=== PATIENT | male | born 1935 | race African-American/Black ===

== ENCOUNTER 2016-11-17 07:34 | Inpatient (IN) ==
[2016-11-17] MEDS ORDERED: SODIUM CHLORIDE 0.9% 500 ML IV STA (08:19)
[2016-11-17] MEDS ORDERED: PANTOPRAZOLE 40 MG VIAL IV STA (08:19)
--- NOTE | 2016-11-17 08:21 | Emergency Department Note ---
Veronica Calvert Brittany, am scribing for, and in the presence of, Rk Rivera MD 08:17. Nicole Calvert Phillip K, MD, personally performed the services described in this documentation, ascribed by Irene Martin in my presence, and it is both accurate and complete 820 . Arrival - Arrival Chief Complaint: GI Bleed/Rectal Stated Complaint: BLACK BOWEL (LIQUID) HICCUP CHEST PAIN ED Nursing Triage Note: C/o vomiting and diarrhea-onset 3 days ago. Reports black, tarry stool and coffee ground emesis. Denies abd pain. Mode of Arrival: Ambulatory Source: Patient, Family Time Seen by Provider: 11/17/16 07:57 - History of Present Illness HPI Narrative: This is an 81 y/o black male, who presents to the ED with c/o rectal bleeding which started 3 days ago. He reports he started to feel nauseated and vomiting for the past 3 days as well. He reports the diarrhea is black and tarry. He states the emsis is more like coffee grounds He denies any abd pain. His family denies any Hx of bleeding ulcers. His family states he does not take anti -inflammatory meds. Pt has no other complaints/pain in the ED at this time. Pt has a PMHx of HTN, dyslipidemia, and glaucoma. Pt denies a surgical Hx. Pt denies a family medical Hx. Pt denies a social Hx. Onset (ago): day(s) (Started 3 days) Consistency: constant Severity: moderate Allergies/Adverse Reactions: Allergies Allergy/AdvReac Type Severity Reaction Status Date / Time No Known Allergies Allergy Verified 11/17/16 07:48 Home Medications: Home Medications Medication Instructions Recorded Confirmed Type Atorvastatin [Lipitor] 20 mg PO DAILY 11/17/16 11/17/16 History Metoprolol Succinate Xl [Toprol Xl] 25 mg PO DAILY 11/17/16 11/17/16 History Timolol 0.5% Oph Soln [Timoptic 1 drop BOTH EYES DAILY 11/17/16 11/17/16 History 0.5%] amLODIPine [Norvasc] 5 mg PO DAILY 11/17/16 11/17/16 History Review of System - Review of System 12 point system: reviewed and no additional remarkable complaints except as stated - Review of System Constitutional: Absent: fever Gastrointestinal: Present: nausea, vomiting (Coffee ground emesis), diarrhea. Absent: abdominal pain Medical,Surgical,& Family Hx - Medical History Cardio: History of: Hypertension HEENT: History of: Glaucoma Endocrine: History of: Dyslipidemia - Social History Smoking Status: Never smoker Frequency of Alcohol Use: None Type of Drug Use: None Exam Vital Signs: Vital Signs Temperature 98.3 F 11/17/16 07:40 Pulse Rate 74 11/17/16 07:59 Respiratory Rate 16 11/17/16 07:59 Blood Pressure 130/76 11/17/16 07:59 O2 Sat by Pulse Oximetry 100 11/17/16 07:59 - General General appearance: alert, in no apparent distress - Head Head exam: Present: atraumatic, normocephalic, normal inspection - Eye Eye exam: Present: normal appearance, PERRL, EOMI - ENT ENT exam: Present: normal exam, normal oropharynx, mucous membranes moist - Neck Neck exam: Present: normal inspection, full ROM. Absent: tenderness - Chest Chest inspection: Present: normal inspection. Absent: tenderness, rash, abscess - Respiratory Respiratory exam: Present: normal lung sounds bilaterally. Absent: rales, respiratory distress, rhonchi, stridor, wheezes - Cardiovascular Cardiovascular exam: Present: regular rate, normal rhythm, normal heart sounds. Absent: murmur, rubs, gallop - Abdominal Exam Abdominal exam: Present: soft, normal bowel sounds. Absent: distention, tenderness, guarding, rebound, rigidity - Rectal Exam Rectal exam: Present: deferred, heme (+) stool - Extremities Exam Extremities exam: Present: normal inspection, full ROM. Absent: tenderness, joint swelling, calf tenderness - Back Exam Back exam: Present: normal inspection, full ROM. Absent: tenderness, muscle spasm, rashes - Neurological Exam Neurological exam: Present: alert, oriented X3, CN II-XII intact - Psychiatric Psychiatric exam: Present: normal affect, normal mood. Absent: agitated, anxious - Skin Skin exam: Present: warm, intact, normal color. Absent: diaphoresis Results - Labs CBC & BMP: 11/17/16 09:04 Lab Results: I have reviewed the patients labs - EKG EKG results: interpreted by EVERETTE, sinus rhythm (LVH) - Diagnostic Findings Procedure: Abdominal x-ray: report reviewed by me (air-fluid levels without evidence of obstruction), Chest x-ray: report reviewed by me (Minimal bibasilar opacities are present. This likely repersents atelectasis, but superimposed pneumonia is not excluded. ) Disposition Clinical Impression: Melena, Upper gastrointestinal hemorrhage Case discussed with: patient Disposition: Still a Patient Condition: Guarded Additional Instructions: Admitted to the hospitalist.
--- NOTE | 2016-11-17 08:50 | XRay Report ---
Referring Physician: Rk Rivera Exam: XR abdomen complete with decubitus view Date: November 17, 2016 at 8:29 AM Reason: Generalized abdominal pain Comparison: None Findings: There is scattered air within the colon with air-fluid levels present. This could represent mild ileus or a diarrheal illness. No definite renal calculi are identified, but the renal shadows are partially obscured. There is degenerative change at the lower lumbar spine and pelvis, and the patient is status post left total hip replacement. No acute osseous process is seen. Impression: There is scattered air within the colon with air-fluid levels present. This could represent mild ileus or a diarrheal illness. PROCEDURE INTERPRETED AT [facility] DEPARTMENT OF RADIOLOGY Final Report Signed by: Dr. Hannah Martinez
--- NOTE | 2016-11-17 08:52 | XRay Report ---
Referring Physician: Rk Rivera Exam: XR chest 1V Date: November 17, 2016 at 8:29 AM Reason: Shortness of breath Comparison: Chest x-ray portable November 30, 2009 Findings: The cardiac silhouette is upper normal in size, and there is scattered calcified plaque at the thoracic aorta. There may also be calcified hilar lymph nodes. There are minimal opacities at both lung bases. This likely represents atelectasis, but superimposed pneumonia is not excluded. No pneumothorax or definite pleural fluid is identified. No acute osseous process is seen. Impression: Minimal bibasilar opacities are present. This likely represent atelectasis, but superimposed pneumonia is not excluded. PROCEDURE INTERPRETED AT [facility] [place] DEPARTMENT OF RADIOLOGY Final Report Signed by: Dr. Hannah Martinez
[2016-11-17] MEDS ORDERED: PANTOPRAZOLE 40 MG VIAL IV ONE (09:12)
[2016-11-17 09:16] LABS: Basophils % 0.2 % (0.0-0.8); Eosinophils # 0.1 10*3/uL (0.0-0.87); Eosinophils % 0.8 % (0.00-10.9); Hematocrit 35.6 VOL% (42.0-52.0); Hemoglobin 12.1 GM/DL (14.0-18.0); Immature Granulocytes % 0.3 %; Immature Granulocytes Absolute 0.02 #; Lymphocytes # 1.3 10*3/uL (1.4-4.0); Lymphocytes % 20.5 % (21.2-54.2); Mean Corpuscular Hemoglobin 26 PG (27-34); Mean Corpuscular Volume 77.7 FL (87-102); Mean Platelet Volume 11.4 FL (9.6-12.0); Monocytes # 0.7 10*3/uL (0.11-0.8); Monocytes % 10.8 % (1.7-12.7); Neutrophils # 4.2 10*3/uL (1.4-7.4); Neutrophils % 67.4 % (38.7-73.9); Platelet Count 185 10*3/uL (130-400); Red Blood Count 4.58 10*6/uL (3.8-5.5); Red Cell Distribution Width 14.7 % (9.3-17.3); White Blood Count 6.2 10*3/uL (4.5-13.71)
[2016-11-17 09:22] LABS: INR 1.1; PT Patient Result 11.3 SECS
[2016-11-17 09:41] LABS: Albumin 3.2 G/DL (3.4-5.0); Bilirubin,Total 0.8 MG/DL (0.2-1.0); Calcium 8.3 MG/DL (8.5-10.1); Osmolality,Calculated 296.4 MOS/KG (273-304); Potassium 3.6 MMOL/L (3.5-5.1); Total Protein 6.2 G/DL (6.4-8.3)
[2016-11-17] MEDS ORDERED: ONDANSETRON 4 MG/2 ML VIAL IV PRN (10:01)
[2016-11-17] MEDS ORDERED: MORPHINE 2 MG/1 ML SYRINGE IV PRN (10:01)
[2016-11-17] MEDS ORDERED: ACETAMINOPHEN 325 MG TABLET PO PRN (10:01)
--- NOTE | 2016-11-17 10:10 | Hospitalist History & Physical ---
<Yesi Castellano N - Last Filed: 11/17/16 10:05> Assessment and Plan - Time spent with patient Time spent with patient: Greater than 30 minutes (due to assessment, plan and documentation) (1) Dark stools Status: Acute Assessment and plan: Admit to Med/Surg Consult GI, Dr. Bailey IV Protonix recheck H/H in the AM routine labs in the AM clear liquid diet DVT prophylaxis with VTE only resume home meds further plan and addendum to follow per Dr Jose Current Visit: Yes (2) Vomiting Status: Acute Current Visit: Yes History of Present Illness Chief complaint: GI bleeding History of present illness: Mr. Alatorre is a 81 year old male who presents to the ER with dark black stools x3 days. Mr. Alatorre is very heard of hearing and has trouble conversing with me, his answers most of his questions for me. She states they noticed his stool being dark black and watery on Sunday, no bright red blood. He also had a few episodes of vomiting. This morning he began vomiting frequently and they came to the Er. She denies seeing any dark blood or bright red blood in his vomit. He denies abdominal pain. No tenderness on exam. They both state that he has never had any GI bleeding before. He has a PMH of hypertension and dyslipidemia. PSH of cardiac cath. He does not smoke or drink. He ambulates well on his own. His states he has no diagnosis of dementia but that he is so hard of hearing and he often seems confused. Mr. Alatorre is oriented x3 but does have difficulty answering questions. At present he denies chest pain, shortness of breath, headache, fever, abdominal pain, dysuria or edema. His H/H is stable today at 12/35. Vitals stable on bedside monitor. There are no old records to review. Home Medications Medication Instructions Recorded Confirmed Type Atorvastatin [Lipitor] 20 mg PO DAILY 11/17/16 11/17/16 History Metoprolol Succinate Xl [Toprol Xl] 25 mg PO DAILY 11/17/16 11/17/16 History Timolol 0.5% Oph Soln [Timoptic 1 drop BOTH EYES DAILY 11/17/16 11/17/16 History 0.5%] amLODIPine [Norvasc] 5 mg PO DAILY 11/17/16 11/17/16 History Allergies Allergy/AdvReac Type Severity Reaction Status Date / Time No Known Allergies Allergy Verified 11/17/16 07:48 Medical,Surgical,& Family Hx - Medical History Cardio: History of: Hypertension HEENT: History of: Glaucoma Endocrine: History of: Dyslipidemia - Surgical History Surgical History: noncontributory Cardiac Surgeries: Sugical HX of: Cardiac Catheterization - Family History Family History: noncontributory - Social History Smoking Status: Never smoker Frequency of Alcohol Use: None Type of Drug Use: None Marital Status: Lives With:: Spouse Functional capacity: independent ambulation 12 point system: reviewed and no additional remarkable complaints except as stated Exam - Constitutional Vitals: Period Temp Pulse Resp BP Sys/Haque Pulse Ox Last 24 Hr 98.3 F 74-76 16-18 115-130/72-76 96-100 General appearance: no acute distress - Head Head exam: Present: normal inspection, normocephalic - Eye Eye exam: Present: EOMI. Absent: scleral icterus Pupils: Present: AILYN, normal accommodation - ENT ENT exam: Present: normal exam, normal oropharynx - Neck Neck exam: Present: normal inspection. Absent: lymphadenopathy - Respiratory Respiratory exam: Present: clear to auscultation bilaterally. Absent: wheezes - Cardiovascular Cardiovascular exam: Present: regular rate and rhythm. Absent: tachycardia - GI/Abdominal GI/Abdominal exam: Present: normal bowel sounds, soft. Absent: tenderness - Extremities Exam Extremities exam: Present: normal inspection, full ROM. Absent: edema - Back Exam Back exam: Present: normal inspection. Absent: muscle spasm - Neurological Exam Neurological exam: Present: alert, oriented X3 - Psychiatric Psychiatric exam: Present: normal affect, normal mood - Skin Skin exam: Present: normal color, warm, dry Results - Labs CBC & BMP: 11/17/16 09:04 11/17/16 09:04 Lab Results: I have reviewed the past 24 hour labs Quality Measures - VTE Contraindication to Pharmacological VTE Prophylaxis: Active Bleeding <Rafaela Jose - Last Filed: 11/17/16 11:01> Assessment and Plan (1) Upper gastrointestinal hemorrhage Status: Acute Current Visit: Yes History of Present Illness History of present illness: Mr. Alatorre is a 81 year old male presents to the emergency department today with evidence of upper GI bleeding with dark tarry stools and coffee-ground emesis. The patient was seen and examined independently by me on the day of admission in the emergency department. The patient's is at the bedside and is helpful in answering most of his questions due to his hearing difficulties. The case was discussed with the nurse practitioner. Medications were reviewed and reconciled. The patient be admitted to my service with consultation for gastroenterology for possible endoscopy. Clear liquid diet was started. Patient is not on anticoagulation and his INR is normal. H&H is stable and repeat labs of been ordered for tomorrow. Exam - Constitutional Vitals: Period Temp Pulse Resp BP Sys/Haque Pulse Ox Last 24 Hr 70-71 16-17 148-148/88-88 100-100 Results - Labs CBC & BMP: 11/17/16 09:04 11/17/16 09:04
[2016-11-17] MEDS: SODIUM CHLORIDE 0.9% 1,000 ML IV SCH ×2 (11:50→23:48)
--- NOTE | 2016-11-17 12:34 | Gastrointestinal Consult Note ---
<Hannah Catalan - Last Filed: 11/17/16 12:29> Assessment and Plan (1) Melena Status: Acute Assessment and plan: 11/17-Sudden onset of dark coffee ground emesis two days ago with reported dark runny stools x 2 days. No abd pain. Hgb stable at 12. Reports endoscopy of some type in past year, possibly [facility]. Check stool for occult blood. Monitor serial HH. Plan and addendum to follow by Dr Bailey. Current Visit: Yes History of Present Illness Chief complaint: GI bleed History of present illness: Mr. Alatorre is a 81 year old male who presented to the ER with two day history of coffee ground emesis and melena. Pt is very hard of hearing. at bedside and provides history. Pt is reported to not feel very well on Sunday night and began having nausea with vomiting. He vomitted up what was reported to be dark liquid several times. He awoke on Sunday morning and vomitted dark liquid a couple of more times and at that time began having loose watery dark stools. Pt did not complain of abdominal pain but states he sat with his hands rubbing his abdomen off and on. He developed hiccups on Sunday as well and has had this continually since this time. He has no prior history of GI Bleed in the past. He denies any NSAID use. Denies any GERD symptoms, difficulty swallowing, weight loss, fever or chills. His states he has had some type of endoscopy, possibly at [facility], in the past year but cannot recall the details. No endoscopy history noted in our facility database. Hgb 12 at present with last dark stool reported this morning. Abd xray shows possible mild ileus or diarrheal illness with scattered air in colon and air-fluid levels present. Home Medications Medication Instructions Recorded Confirmed Type Atorvastatin [Lipitor] 20 mg PO DAILY 11/17/16 11/17/16 History Metoprolol Succinate Xl [Toprol Xl] 25 mg PO DAILY 11/17/16 11/17/16 History Timolol 0.5% Oph Soln [Timoptic 1 drop BOTH EYES DAILY 11/17/16 11/17/16 History 0.5%] amLODIPine [Norvasc] 5 mg PO DAILY 11/17/16 11/17/16 History Allergies Allergy/AdvReac Type Severity Reaction Status Date / Time No Known Allergies Allergy Verified 11/17/16 07:48 Medical,Surgical,& Family Hx - Medical History Cardio: History of: Hypertension Neurology: History of: Cerebral Hemorrhage HEENT: History of: Glaucoma Endocrine: History of: Dyslipidemia Genitourinary: History of: Prostate Problems - Surgical History Cardiac Surgeries: Sugical HX of: Cardiac Catheterization Neurologic Surgeries: Surgical HX of: Cerebral Hemorrhage Orthopedic Surgeries: Surgical HX of;: Orthopedic Surgery (right hip surgery in 2012) - Social History Smoking Status: Never smoker Frequency of Alcohol Use: None Type of Drug Use: None ROS unobtainable: other (hard of hearing) Exam - Constitutional Vitals: Period Temp Pulse Resp BP Sys/Haque Pulse Ox Last 24 Hr 98.2 F 70-75 16-18 145-148/70-88 95-100 General appearance: normal weight, no acute distress - Head Head exam: Present: normal inspection, normocephalic - Eye Eye exam: Present: other (lids and conjunctiva unremarkable). Absent: scleral icterus - ENT ENT exam: Present: normal exam, normal oropharynx - Neck Neck exam: Present: normal inspection - Respiratory Respiratory exam: Present: clear to auscultation bilaterally. Absent: rales, rhonchi, wheezes - Cardiovascular Cardiovascular exam: Present: regular rate and rhythm. Absent: diastolic murmur , JVD, systolic murmur - GI/Abdominal GI/Abdominal exam: Present: normal bowel sounds, soft. Absent: ascites, distended, mass, organomegaly, tenderness - Extremities Exam Extremities exam: Present: normal inspection, full ROM - Back Exam Back exam: Present: normal inspection - Neurological Exam Neurological exam: Present: alert, oriented X3 - Psychiatric Psychiatric exam: Present: normal affect, normal mood - Skin Skin exam: Present: normal color, warm, dry Results - Labs CBC & BMP: 11/17/16 09:04 11/17/16 09:04 Lab Results: I have reviewed the past 24 hour labs Quality Measures - VTE Contraindication to Pharmacological VTE Prophylaxis: Active Bleeding Specialty Discharge - Follow Up or Referrals - Discharge Medications No Action Timolol 0.5% Oph Soln [Timoptic 0.5%] 1 drop BOTH EYES DAILY amLODIPine [Norvasc] 5 mg PO DAILY Metoprolol Succinate Xl [Toprol Xl] 25 mg PO DAILY Atorvastatin [Lipitor] 20 mg PO DAILY <Tiburcio Bailey - Last Filed: 11/17/16 15:10> History of Present Illness History of present illness: Mr. Alatorre is a 81 year old male Exam - Constitutional Vitals: Period Temp Pulse Resp BP Sys/Haque Pulse Ox Last 24 Hr 98.2 F 70-75 16-18 145-148/70-88 95-100 Results - Labs CBC & BMP: 11/17/16 09:04 11/17/16 09:04
[2016-11-17] MEDS: PANTOPRAZOLE 40 MG VIAL IV SCH (20:18)
[2016-11-18] MEDS: SODIUM CHLORIDE 0.9% 1,000 ML IV SCH ×2 (01:41→15:00)
[2016-11-18 07:15] LABS: Basophils % 0.2 % (0.0-0.8); Eosinophils # 0.2 10*3/uL (0.0-0.87); Eosinophils % 3.5 % (0.00-10.9); Hematocrit 35.8 VOL% (42.0-52.0); Hemoglobin 11.9 GM/DL (14.0-18.0); Immature Granulocytes % 0.3 %; Immature Granulocytes Absolute 0.02 #; Lymphocytes # 1.7 10*3/uL (1.4-4.0); Lymphocytes % 28.8 % (21.2-54.2); Mean Corpuscular HGB Conc 33.2 GM/DL (32-36); Mean Corpuscular Hemoglobin 26 PG (27-34); Mean Platelet Volume 11.5 FL (9.6-12.0); Monocytes # 0.7 10*3/uL (0.11-0.8); Monocytes % 11.9 % (1.7-12.7); Neutrophils # 3.2 10*3/uL (1.4-7.4); Neutrophils % 55.3 % (38.7-73.9); Platelet Count 135 10*3/uL (130-400); Red Blood Count 4.59 10*6/uL (3.8-5.5); Red Cell Distribution Width 14.8 % (9.3-17.3); White Blood Count 5.7 10*3/uL (4.5-13.71)
[2016-11-18 07:48] LABS: Bilirubin,Total 0.9 MG/DL (0.2-1.0); Calcium 8.4 MG/DL (8.5-10.1); Osmolality,Calculated 295.1 MOS/KG (273-304); Potassium 3.9 MMOL/L (3.5-5.1); Total Protein 5.9 G/DL (6.4-8.3)
--- NOTE | 2016-11-18 08:25 | EKG Report ---
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
--- NOTE | 2016-11-18 08:29 | Hospitalist Progress Note ---
Assessment and Plan (1) Upper gastrointestinal hemorrhage Status: Acute Assessment and plan: monitor H/H. EGD on sunday. GI consult noted Current Visit: Yes Hospitalist: Subjective Interval history: Patient seen and examined with his at the bedside. He is still having some loose BM's. The color is not black/ tarry anymore. He reports his stomach is " no settled". Exam - Constitutional Vitals: Period Temp Pulse Resp BP Sys/Haque Pulse Ox Last 24 Hr 97.7 F-99 F 55-75 16-18 124-148/66-88 95-100 General appearance: no acute distress - Head Head exam: Present: normal inspection, normocephalic - Eye Eye exam: Present: EOMI Pupils: Present: AILYN - ENT ENT exam: Present: other (very hard of hearing) - Respiratory Respiratory exam: Present: clear to auscultation bilaterally - Cardiovascular Cardiovascular exam: Present: regular rate and rhythm - GI/Abdominal GI/Abdominal exam: Present: normal bowel sounds, soft - Extremities Exam Extremities exam: Absent: edema - Neurological Exam Neurological exam: Present: alert, oriented X3 - Psychiatric Psychiatric exam: Present: normal affect, normal mood - Skin Skin exam: Present: normal color, warm, dry Results - Labs CBC & BMP: 11/18/16 07:01 11/18/16 07:01 Lab Results: I have reviewed the past 24 hour labs Quality Measures - VTE Contraindication to Pharmacological VTE Prophylaxis: Active Bleeding Specialty Discharge - Follow Up or Referrals - Discharge Medications No Action Timolol 0.5% Oph Soln [Timoptic 0.5%] 1 drop BOTH EYES DAILY amLODIPine [Norvasc] 5 mg PO DAILY Metoprolol Succinate Xl [Toprol Xl] 25 mg PO DAILY Atorvastatin [Lipitor] 20 mg PO DAILY
[2016-11-18] MEDS: amLODIPine 5 MG TABLET PO SCH (09:16)
[2016-11-18] MEDS: ATORVASTATIN 20 MG TABLET PO SCH (09:16)
[2016-11-18] MEDS: METOPROLOL SUCCINATE XL 25 MG TABLET PO SCH (09:16)
[2016-11-18] MEDS: PANTOPRAZOLE 40 MG VIAL IV SCH ×2 (09:16→20:28)
--- NOTE | 2016-11-18 15:41 | Gastrointestinal Progress Note ---
Assessment and Plan - Time spent with patient Time spent with patient: Greater than 30 minutes (1) Upper gastrointestinal hemorrhage Status: Acute Current Visit: Yes (2) Other specified counseling Status: Acute Current Visit: Yes Exam (Progress Note) - Constitutional Vitals: Period Temp Pulse Resp BP Sys/Haque Pulse Ox Last 24 Hr 97.7 F-99 F 55-81 16-20 124-146/66-83 95-98 Results - Labs CBC & BMP: 11/18/16 07:01 11/18/16 07:01 Specialty Discharge - Follow Up or Referrals - Discharge Medications No Action Timolol 0.5% Oph Soln [Timoptic 0.5%] 1 drop BOTH EYES DAILY amLODIPine [Norvasc] 5 mg PO DAILY Metoprolol Succinate Xl [Toprol Xl] 25 mg PO DAILY Atorvastatin [Lipitor] 20 mg PO DAILY Note Addendum: PLEASE NOTE -- automatic citation of patient information is unavoidable in this electronic note. I have made a reasonable effort to review the information cited , but it is not a part of my evaluation, impression, or recommendation unless specifically discussed in the dictated text that follows.~ As well, voice recognition software was used in the creation of this clinical note. Reasonable effort was made to identify and correct gross errors. Despite proofreading, errors in bread wrapper operator may be present, including nonsense verbiage at times. If you encounter such an error, please contact me at for discussion and correction. -- Cathy Chief complaint: hematemesis Subjective: the patient is an 81-year-old male seen for follow-up of hematemesis with anemia. The patient was admitted yesterday with complaint of same. Evaluation at that time did not reveal overt active bleeding. No emesis has been documented overnight. One bowel movement has been documented today. The patient is somewhat confused but he is alert and oriented to person and place. He is a little bit frustrated, it would appear. He is attended by his unmyqtm-tr-ien who is helpful in our conversation. He is without pain or discomfort at present. Medications: Tylenol, [place], Norvasc, Lipitor, Toprol, morphine sulfate, Zofran , Protonix, normal saline infusion Review of Symptoms: 12 point review of symptoms was negative except as noted above Physical examination: Vital Signs:~ Current vital signs reviewed. General Appearance: lying in bed. Comfortable. No apparent distress. Head:~ Normocephalic. Eyes: no scleral icterus. No scleral injection. No conjunctival pallor. Oral Cavity:~ Odor of breath was normal.~ No drooling was observed.~ Lips showed no abnormalities. ~ Lungs:~ Respiration rhythm and depth was normal. ~ Cardiovascular:~ Heart rate and rhythm were normal. ~ Abdomen: abdomen was not distended. Abdominal auscultation revealed no abnormalities. Ascites was not discovered. Abdominal palpation revealed no tenderness and no hepatosplenomegaly. Musculoskeletal System: musculoskeletal system was grossly normal. Neurological: level of consciousness was normal. Speech was normal. The patient was alert and oriented to person and place but may have been confabulating a bit. Skin: Gen. appearance was normal. Color and pigmentation were normal. No skin lesions were appreciated. Laboratory: white blood count 5.7, hemoglobin 11.9, hematocrit 35.8, platelets 135, INR 1.1, PT 11.3 Radiology: reviewed with no pertinent changes noted. Impressions: 1. Hematemesis -- blood counts have remained stable and there has been no overt bleeding. I recommend continued monitoring with aggressive volume support and transfusion as indicated. I recommend continued proton pump inhibitor. We will plan upper endoscopy with timing based on clinical progress, likely Sunday. 2. Patient Counseling:~ Medical Management: Patient seen for greater than 30 minutes. Greater than 50% of this time was spent counseling regarding differential diagnosis, likely diagnosis,, diagnostic and therapeutic options, risks, benefits, and alternatives to procedures and medications, informed consent, and plan of care generally.~ Patient has expressed understanding and wishes to proceed. Recommendations: -- continue aggressive volume management -- continue proton pump inhibitor -- monitor blood counts with transfusion as indicated -- upper endoscopy with timing based on clinical progress, likely Sunday -- we will continue to follow with you
[2016-11-19] MEDS: SODIUM CHLORIDE 0.9% 1,000 ML IV SCH (03:30)
--- NOTE | 2016-11-19 09:11 | Gastrointestinal Progress Note ---
Assessment and Plan - Time spent with patient Time spent with patient: Less than 30 minutes (1) Upper gastrointestinal hemorrhage Status: Acute Current Visit: Yes (2) Other specified counseling Status: Acute Current Visit: Yes Exam (Progress Note) - Constitutional Vitals: Period Temp Pulse Resp BP Sys/Haque Pulse Ox Last 24 Hr 97.8 F-98.7 F 66-86 16-20 125-155/67-87 95-99 Results - Labs CBC & BMP: 11/18/16 07:01 11/18/16 07:01 Specialty Discharge - Follow Up or Referrals - Discharge Medications No Action Timolol 0.5% Oph Soln [Timoptic 0.5%] 1 drop BOTH EYES DAILY amLODIPine [Norvasc] 5 mg PO DAILY Metoprolol Succinate Xl [Toprol Xl] 25 mg PO DAILY Atorvastatin [Lipitor] 20 mg PO DAILY Note Addendum: PLEASE NOTE -- automatic citation of patient information is unavoidable in this electronic note. I have made a reasonable effort to review the information cited , but it is not a part of my evaluation, impression, or recommendation unless specifically discussed in the dictated text that follows. As well, voice recognition software was used in the creation of this clinical note. Reasonable effort was made to identify and correct gross errors. Despite proofreading, errors in waterproof coating machine tender may be present, including nonsense verbiage at times. If you encounter such an error, please contact me at for discussion and correction. -- Cathy Chief complaint: hematemesis Subjective: the patient is an 81-year-old male seen for follow-up of hematemesis with anemia. The patient was admitted yesterday with complaint of same. Evaluation at that time did not reveal overt active bleeding. No emesis has been documented overnight. One bowel movement has been documented today. The patient is somewhat confused but he is alert and oriented to person and place. He is a little bit frustrated, it would appear. He is attended by his [id number] who is helpful in our conversation. He is without pain or discomfort at present. Medications: Tylenol, [place], Norvasc, Lipitor, Toprol, morphine sulfate, Zofran , Protonix, normal saline infusion Review of Symptoms: 12 point review of symptoms was negative except as noted above Physical examination: Vital Signs: Current vital signs reviewed. General Appearance: lying in bed. Comfortable. No apparent distress. Head: Normocephalic. Eyes: no scleral icterus. No scleral injection. No conjunctival pallor. Oral Cavity: Odor of breath was normal. No drooling was observed. Lips showed no abnormalities. Lungs: Respiration rhythm and depth was normal. Cardiovascular: Heart rate and rhythm were normal. Abdomen: abdomen was not distended. Abdominal auscultation revealed no abnormalities. Ascites was not discovered. Abdominal palpation revealed no tenderness and no hepatosplenomegaly. Musculoskeletal System: musculoskeletal system was grossly normal. Neurological: level of consciousness was normal. Speech was normal. The patient was alert and oriented to person and place but may have been confabulating a bit. Skin: Gen. appearance was normal. Color and pigmentation were normal. No skin lesions were appreciated. Laboratory: no new laboratories today Radiology: reviewed with no pertinent changes noted. Impressions: 1. Hematemesis -- blood counts have remained stable and there has been no overt bleeding. I recommend continued monitoring with aggressive volume support and transfusion as indicated. I recommend continued proton pump inhibitor. We will plan upper endoscopy with timing based on clinical progress, likely Sunday. 2. Patient Counseling: Medical Management: Patient seen for greater than 30 minutes. Greater than 50% of this time was spent counseling regarding differential diagnosis, likely diagnosis,, diagnostic and therapeutic options, risks, benefits, and alternatives to procedures and medications, informed consent, and plan of care generally. Patient has expressed understanding and wishes to proceed. Recommendations: -- continue aggressive volume management -- continue proton pump inhibitor -- monitor blood counts with transfusion as indicated -- upper endoscopy with timing based on clinical progress, likely Sunday -- we will continue to follow with you
[2016-11-19] MEDS: METOPROLOL SUCCINATE XL 25 MG TABLET PO SCH (09:24)
[2016-11-19] MEDS: PANTOPRAZOLE 40 MG VIAL IV SCH ×2 (09:24→20:11)
[2016-11-19] MEDS: amLODIPine 5 MG TABLET PO SCH (09:24)
[2016-11-19] MEDS: ATORVASTATIN 20 MG TABLET PO SCH (09:24)
--- NOTE | 2016-11-19 11:58 | Hospitalist Progress Note ---
Assessment and Plan (1) Upper gastrointestinal hemorrhage Status: Acute Assessment and plan: monitor H/H. EGD on sunday. GI consult noted Current Visit: Yes Hospitalist: Subjective Interval history: Patient seen and examined. No acute events overnight. at the bedside. No blood in stool. Scope plan for tomorrow. Exam - Constitutional Vitals: Period Temp Pulse Resp BP Sys/Haque Pulse Ox Last 24 Hr 97.8 F-98.7 F 66-86 16-20 125-155/67-87 95-99 General appearance: no acute distress - Head Head exam: Present: normal inspection, normocephalic - Respiratory Respiratory exam: Present: clear to auscultation bilaterally - Cardiovascular Cardiovascular exam: Present: regular rate and rhythm - GI/Abdominal GI/Abdominal exam: Present: normal bowel sounds, soft. Absent: tenderness, rebound - Extremities Exam Extremities exam: Absent: edema - Neurological Exam Neurological exam: Present: alert - Psychiatric Psychiatric exam: Present: normal affect, normal mood - Skin Skin exam: Present: normal color, warm, dry Results - Labs CBC & BMP: 11/18/16 07:01 11/18/16 07:01 Lab Results: I have reviewed the past 24 hour labs Quality Measures - VTE Contraindication to Pharmacological VTE Prophylaxis: Active Bleeding Specialty Discharge - Follow Up or Referrals - Discharge Medications No Action Timolol 0.5% Oph Soln [Timoptic 0.5%] 1 drop BOTH EYES DAILY amLODIPine [Norvasc] 5 mg PO DAILY Metoprolol Succinate Xl [Toprol Xl] 25 mg PO DAILY Atorvastatin [Lipitor] 20 mg PO DAILY
[2016-11-20 06:29] LABS: Basophils % 0.2 % (0.0-0.8); Eosinophils # 0.2 10*3/uL (0.0-0.87); Eosinophils % 2.4 % (0.00-10.9); Hematocrit 36.3 VOL% (42.0-52.0); Hemoglobin 12.4 GM/DL (14.0-18.0); Immature Granulocytes % 0.5 %; Immature Granulocytes Absolute 0.03 #; Lymphocytes # 2.1 10*3/uL (1.4-4.0); Lymphocytes % 32.3 % (21.2-54.2); Mean Corpuscular HGB Conc 34.2 GM/DL (32-36); Mean Corpuscular Hemoglobin 26 PG (27-34); Mean Corpuscular Volume 77.2 FL (87-102); Mean Platelet Volume 10.9 FL (9.6-12.0); Monocytes # 0.6 10*3/uL (0.11-0.8); Neutrophils # 3.5 10*3/uL (1.4-7.4); Neutrophils % 54.6 % (38.7-73.9); Platelet Count 191 10*3/uL (130-400); Red Cell Distribution Width 14.2 % (9.3-17.3); White Blood Count 6.4 10*3/uL (4.5-13.71)
[2016-11-20 06:44] LABS: Calcium 8.9 MG/DL (8.5-10.1); Osmolality,Calculated 289.4 MOS/KG (273-304); Potassium 3.4 MMOL/L (3.5-5.1)
[2016-11-20 07:12] LABS: Hypochromasia Slight; Microcytosis Slight
[2016-11-20] MEDS ORDERED: POTASSIUM CHLORIDE 20 MEQ TABLET PO ONE ×2 (07:18→14:00)
--- NOTE | 2016-11-20 09:45 | Hospitalist Progress Note ---
<Jordyn Sandoval - Last Filed: 11/20/16 09:43> Assessment and Plan - Time spent with patient Time spent with patient: Less than 30 minutes (due to assessment, plan and documentation) (1) Upper gastrointestinal hemorrhage Status: Acute Assessment and plan: for EGD today, h/h stable cbc in am Current Visit: Yes (2) Dark stools Status: Acute Current Visit: Yes (3) Vomiting Status: Acute Current Visit: Yes Hospitalist: Subjective Interval history: Mr. Alatorre was seen on rounds sitting in chair. He was admitted with an UGIB and is for an EGD today. His H/H is stable at 12/36. Stools returned 4+ positive. He has not required a transfusion. Vitals are stable as are his labs. He has been on protonix 40 mg IV. He states that he is hungry and cold, but otherwise doing well. is at bedside. We will continue to follow along with GI. Labs in AM. Exam - Constitutional Vitals: Period Temp Pulse Resp BP Sys/Haque Pulse Ox Last 24 Hr 97.6 F-98.8 F 58-72 16-18 124-142/57-77 93-99 General appearance: normal weight, no acute distress - Head Head exam: Present: normal inspection, normocephalic - Eye Eye exam: Present: EOMI. Absent: scleral icterus Pupils: Present: AILYN, normal accommodation - ENT ENT exam: Present: normal exam, normal oropharynx - Neck Neck exam: Present: normal inspection. Absent: lymphadenopathy - Respiratory Respiratory exam: Present: clear to auscultation bilaterally. Absent: accessory muscle use - Cardiovascular Cardiovascular exam: Present: regular rate and rhythm. Absent: carotid bruit - GI/Abdominal GI/Abdominal exam: Present: normal bowel sounds. Absent: tenderness - Extremities Exam Extremities exam: Present: normal inspection. Absent: edema - Back Exam Back exam: Present: normal inspection. Absent: muscle spasm - Neurological Exam Neurological exam: Present: alert, oriented X3 - Psychiatric Psychiatric exam: Present: normal affect, normal mood - Skin Skin exam: Present: normal color, warm, dry, intact Results - Labs CBC & BMP: 11/20/16 05:44 11/20/16 05:44 Lab Results: I have reviewed the past 24 hour labs Quality Measures - VTE Contraindication to Pharmacological VTE Prophylaxis: Active Bleeding Specialty Discharge - Follow Up or Referrals - Discharge Medications No Action Timolol 0.5% Oph Soln [Timoptic 0.5%] 1 drop BOTH EYES DAILY amLODIPine [Norvasc] 5 mg PO DAILY Metoprolol Succinate Xl [Toprol Xl] 25 mg PO DAILY Atorvastatin [Lipitor] 20 mg PO DAILY <Rafaela Jose - Last Filed: 11/20/16 11:11> Assessment and Plan (1) Upper gastrointestinal hemorrhage Status: Acute Current Visit: Yes Hospitalist: Subjective Interval history: Patient seen and examined. Labs reviewed. Case discussed with nurse practitioner and patient's . Patient scheduled for endoscopy today. Further plan depending on results and findings. H&H is stable. I reviewed with the above assessment and physical exam and plan and I agree.. Exam - Constitutional Vitals: Period Temp Pulse Resp BP Sys/Haque Pulse Ox Last 24 Hr 97.6 F-98.8 F 58-72 15-18 124-142/57-77 93-100 Results - Labs CBC & BMP: 11/20/16 05:44 11/20/16 05:44
[2016-11-20] MEDS ORDERED: LIDOCAINE 2% 5 ML VIAL ONE (11:50)
[2016-11-20] MEDS ORDERED: PROPOFOL 200 MG/20 ML VIAL IV ONE (11:50)
[2016-11-20] MEDS ORDERED: BISACODYL 5 MG TABLET PO ONE (12:00)
--- NOTE | 2016-11-20 12:04 | History and Physical Update ---
History and Physical Update - Physical Exam Mental Status: alert and oriented Heart: regular rate and rhythm Lung: clear to auscultation Abdomen: within normal limits Vitals: within normal limits
--- NOTE | 2016-11-20 12:04 | Anesthesia ---
Anesthesia Post OP - Post Ansesthetic Evaluation Patient seen in post op: Yes Resp: within normal limits CV: within normal limits Mental: within normal limits Temp: within normal limits [id number]: within normal limits Nausea and Vomiting: within normal limits Pain: within normal limits
--- NOTE | 2016-11-20 12:06 | Operative Note ---
Date of procedure: 11/20/16 Pre-op diagnosis: melena with reported hematemesis Procedure: EGD 81-year-old gentleman with melena and hematemesis now for upper endoscopy. Informed consent was obtained the patient He was sedated with Mac anesthesia per anesthesia protocol. Patient was placed in left lateral decubitus position the Olympus flexible video upper endoscope was inserted into the oral cavity under direct vision the esophagus was intubated. Findings: Esophagus-normal proximal mid esophageal mucosa distal esophagus with small to moderate hiatal hernia no varices no esophagitis no Putnam's was identified. Stomach-poor insufflation but no significant mucosal abnormalities were noted of the body fundus cardia or antrum of the stomach. No clear source for coffee ground emesis or melena identified. Pylorus-normal Duodenum-normal from above the duodenum third portion duodenum no AVMs no ulcers seen. The procedure terminated patient our procedure well his discharge recovery in good condition. Postop diagnosis: #1 occult positive stools with questionable melena and no clear source on upper endoscopy we will proceed with colonoscopy in a.m. #2 poor gastric insufflation. Proceed with CT scan abdomen pelvis following colonoscopy for concern over infiltrative process such as lienitis plastica. Anesthesia: [facility] [place] Surgeon / Physician: Tiburcio Bailey Specimens: none sent Condition: stable Disposition: post procedure unit Results - Labs CBC & BMP: 11/20/16 05:44 11/20/16 05:44 Discharge Plan - Discharge Medications No Action Timolol 0.5% Oph Soln [Timoptic 0.5%] 1 drop BOTH EYES DAILY amLODIPine [Norvasc] 5 mg PO DAILY Metoprolol Succinate Xl [Toprol Xl] 25 mg PO DAILY Atorvastatin [Lipitor] 20 mg PO DAILY - Follow Up or Referral - Forms/Instructions
[2016-11-20] MEDS: PANTOPRAZOLE 40 MG VIAL IV SCH ×2 (13:37→20:27)
[2016-11-20] MEDS: METOPROLOL SUCCINATE XL 25 MG TABLET PO SCH (13:37)
[2016-11-20] MEDS: amLODIPine 5 MG TABLET PO SCH (13:37)
[2016-11-20] MEDS: ATORVASTATIN 20 MG TABLET PO SCH (13:37)
[2016-11-20] MEDS ORDERED: POLYETHYLENE GLYCOL POWDER 255 GM BOTTLE PO ONE (18:00)
--- NOTE | 2016-11-21 07:58 | Hospitalist Progress Note ---
<Jordyn Sandoval - Last Filed: 11/21/16 07:55> Assessment and Plan - Time spent with patient Time spent with patient: Less than 30 minutes (due to assessment, plan and documentation) (1) Upper gastrointestinal hemorrhage Status: Acute Assessment and plan: s/p EGD yesterday- no cause found for C scope today difficult night due to prep CBC in Am Current Visit: Yes (2) Dark stools Status: Acute Current Visit: Yes (3) Vomiting Status: Resolved Current Visit: Yes Hospitalist: Subjective Interval history: Mr. Alatorre is asleep on rounds this morning. He is breathing easily, but difficult to awaken. His is at bedside and said that he had a "rough night " due to urinating and having BM's from his bowel prep for C scope today. He is s/p EGD yesterday and no cause was found for his coffee ground emesis, therefore he will have C scope today. Labs are stable as are his vital signs. Lungs are clear, abdomen soft and nondistended. Will follow up after results of C scope today. We will continue to follow along with GI. Exam - Constitutional Vitals: Period Temp Pulse Resp BP Sys/Haque Pulse Ox Last 24 Hr 98.3 F-98.8 F 63-74 18-18 128-135/70-80 96-96 General appearance: normal weight, no acute distress - Head Head exam: Present: normal inspection, normocephalic - Eye Eye exam: Present: EOMI. Absent: scleral icterus Pupils: Present: AILYN, normal accommodation - ENT ENT exam: Present: normal exam, normal oropharynx - Neck Neck exam: Present: normal inspection. Absent: lymphadenopathy - Respiratory Respiratory exam: Present: clear to auscultation bilaterally. Absent: accessory muscle use - Cardiovascular Cardiovascular exam: Present: regular rate and rhythm. Absent: carotid bruit - GI/Abdominal GI/Abdominal exam: Present: normal bowel sounds, soft. Absent: tenderness - Extremities Exam Extremities exam: Present: normal inspection. Absent: edema - Back Exam Back exam: Present: normal inspection. Absent: muscle spasm - Neurological Exam Neurological exam: Present: other (asleep- difficult to awaken. ) - Psychiatric Psychiatric exam: Present: other (asleep, difficult to awaken, breathing easily. ) - Skin Skin exam: Present: normal color, warm, dry, intact Results - Labs CBC & BMP: 11/20/16 05:44 11/20/16 05:44 Lab Results: I have reviewed the past 24 hour labs Quality Measures - VTE Contraindication to Pharmacological VTE Prophylaxis: Active Bleeding Specialty Discharge - Follow Up or Referrals - Discharge Medications No Action Timolol 0.5% Oph Soln [Timoptic 0.5%] 1 drop BOTH EYES DAILY amLODIPine [Norvasc] 5 mg PO DAILY Metoprolol Succinate Xl [Toprol Xl] 25 mg PO DAILY Atorvastatin [Lipitor] 20 mg PO DAILY <Rafaela Jose - Last Filed: 11/21/16 12:23> Assessment and Plan (1) Upper gastrointestinal hemorrhage Status: Acute Assessment and plan: Colonoscopy canceled for today due to lack of good prep. Follow-up CT scan abdomen and pelvis from today. Possible outpatient colonoscopy. Current Visit: Yes Hospitalist: Subjective Interval history: Patient seen and examined. Nurse practitioner documentation reviewed and discussed. I agree with the findings. The patient is unable to tolerate the prep for his colonoscopy today. It has been canceled. A CT of the abdomen and pelvis with oral contrast has been ordered and is currently pending. EGD report reviewed from yesterday. Exam - Constitutional Vitals: Period Temp Pulse Resp BP Sys/Haque Pulse Ox Last 24 Hr 98.3 F-98.8 F 63-74 18-18 128-135/70-80 96-96 - Respiratory Respiratory exam: Present: clear to auscultation bilaterally - GI/Abdominal GI/Abdominal exam: Present: soft. Absent: tenderness Results - Labs CBC & BMP: 11/20/16 05:44 11/20/16 05:44 Lab Results: I have reviewed the past 24 hour labs
--- NOTE | 2016-11-21 08:49 | Gastrointestinal Progress Note ---
<AlaynaHannah Bry - Last Filed: 11/21/16 08:44> Assessment and Plan (1) Melena Status: Acute Assessment and plan: 11/21-Post EGD with no findings for melena. Pt refused C-scope prep, procedure cancelled. Will proceed with CT of abdomen/pelvis today. Hgb stable at 12. Plan and addendum to follow by DR Bailey. 11/17-Sudden onset of dark coffee ground emesis two days ago with reported dark runny stools x 2 days. No abd pain. Hgb stable at 12. Reports endoscopy of some type in past year, possibly [facility]. Check stool for occult blood. Monitor serial HH. Plan and addendum to follow by Dr Bailey. Current Visit: Yes Gastroenterology - PN: Subj Interval history: CC: Melena, coffee ground emesis Pt is awake, alert with at side however not very conversant. Pt has refused to complete the prep overnight and stools are still not clear. He also refused the enemas. Pt states that he is normally very agreeable however he has been rather difficult the last couple of days. She states he doesnt have a history of dementia however has been a little confused/forgetful. Abdomen is soft, nontender. ROS: Denies sOB or chest pain Exam (Progress Note) - Constitutional Vitals: Period Temp Pulse Resp BP Sys/Haque Pulse Ox Last 24 Hr 98.3 F-98.8 F 63-74 18-18 128-135/70-80 96-96 General appearance: normal weight, no acute distress - Head Head exam: Present: normal inspection, normocephalic - Eye Eye exam: Present: other (lids and conjuncitva unremarakble). Absent: scleral icterus - ENT ENT exam: Present: normal exam, normal oropharynx - Neck Neck exam: Present: normal inspection - Respiratory Respiratory exam: Present: clear to auscultation bilaterally. Absent: rales, rhonchi, wheezes - Cardiovascular Cardiovascular exam: Present: regular rate and rhythm. Absent: diastolic murmur , JVD, systolic murmur - GI/Abdominal GI/Abdominal exam: Present: normal bowel sounds, soft. Absent: ascites, distended, mass, organomegaly, tenderness - Extremities Exam Extremities exam: Present: normal inspection, full ROM - Back Exam Back exam: Present: normal inspection - Neurological Exam Neurological exam: Present: alert, oriented X3 - Psychiatric Psychiatric exam: Present: normal affect, normal mood - Skin Skin exam: Present: normal color, warm, dry Results - Labs CBC & BMP: 11/20/16 05:44 11/20/16 05:44 Lab Results: I have reviewed the past 24 hour labs Specialty Discharge - Follow Up or Referrals - Discharge Medications No Action Timolol 0.5% Oph Soln [Timoptic 0.5%] 1 drop BOTH EYES DAILY amLODIPine [Norvasc] 5 mg PO DAILY Metoprolol Succinate Xl [Toprol Xl] 25 mg PO DAILY Atorvastatin [Lipitor] 20 mg PO DAILY <Tiburcio Bailey - Last Filed: 11/21/16 18:20> Exam (Progress Note) - Constitutional Vitals: Period Temp Pulse Resp BP Sys/Haque Pulse Ox Last 24 Hr 97.4 F-98.3 F 63-74 18-18 135-172/70-90 96 Results - Labs CBC & BMP: 11/20/16 05:44 11/20/16 05:44
[2016-11-21] MEDS: METOPROLOL SUCCINATE XL 25 MG TABLET PO SCH (09:08)
[2016-11-21] MEDS: amLODIPine 5 MG TABLET PO SCH (09:08)
[2016-11-21] MEDS: ATORVASTATIN 20 MG TABLET PO SCH (09:08)
[2016-11-21] MEDS: PANTOPRAZOLE 40 MG VIAL IV SCH ×2 (09:08→21:11)
--- NOTE | 2016-11-21 14:18 | CT Report ---
Exam: CT abdomen pelvis w con Date: 11/21/2016 8:50 AM Comparison: None Indication: Anemia, melena, coffee-ground emesis Technique: Sequential axial scans of the abdomen and pelvis were obtained following the ingestion of oral contrast and the injection of 100 cc Omnipaque 350. Coronal and sagittal 2-D reconstructions were obtained. Total DLP: 947.70 Findings: The heart is enlarged with arterial calcifications including coronary artery calcifications. Atelectasis/scarring at the visualized lung bases. Fatty infiltration of the liver which is normal in size with no masses, dilated ducts, or calcified gallstones. The spleen is normal in size with 6 mm hypodensity inferiorly. The pancreas, adrenal glands, and kidneys have an unremarkable appearance. No renal or ureteral calculi are identified. Calcification in the wall of the nondilated abdominal aorta with no adjacent adenopathy. 54 mm hiatal hernia with nonspecific thickening of the wall of the stomach at the GE junction and medial fundus location. No dilatation of the small bowel. Limited oral contrast in portions of bowel with no evidence of diverticulitis, appendicitis, free air, or free fluid. The prostate measures 69 mm in diameter and indents the base of the urinary bladder. Minimal urinary bladder wall thickening. 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 Degenerative changes are noted. Impression: Cardiomegaly with diffuse arterial calcifications including coronary artery calcifications. Fatty infiltration of the liver with indeterminate 6 mm hypodensity in the inferior spleen. 54 mm hiatal hernia with limited oral contrast in portions of the bowel. This includes the stomach/GE junction. Nonspecific thickening of the wall of the stomach in this location and endoscopy may be helpful for further evaluation. Nonspecific irregular enlargement of prostate which indents the base urinary bladder. Correlation with PSA recommended. 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 PROCEDURE INTERPRETED AT [facility] DEPARTMENT OF RADIOLOGY Final Report Signed by: Dr. Janeth Singh
[2016-11-21] MEDS ORDERED: BISACODYL 5 MG TABLET PO ONE (21:17)
[2016-11-22 07:15] LABS: Basophils % 0.2 % (0.0-0.8); Eosinophils # 0.2 10*3/uL (0.0-0.87); Eosinophils % 2.1 % (0.00-10.9); Hematocrit 38.7 VOL% (42.0-52.0); Hemoglobin 13.6 GM/DL (14.0-18.0); Immature Granulocytes % 0.4 %; Immature Granulocytes Absolute 0.03 #; Lymphocytes # 1.1 10*3/uL (1.4-4.0); Lymphocytes % 13.6 % (21.2-54.2); Mean Corpuscular HGB Conc 35.1 GM/DL (32-36); Mean Corpuscular Hemoglobin 27 PG (27-34); Mean Platelet Volume 10.4 FL (9.6-12.0); Monocytes # 0.4 10*3/uL (0.11-0.8); Neutrophils # 6.4 10*3/uL (1.4-7.4); Neutrophils % 78.7 % (38.7-73.9); Platelet Count 247 10*3/uL (130-400); Red Blood Count 5.09 10*6/uL (3.8-5.5); Red Cell Distribution Width 14.2 % (9.3-17.3); White Blood Count 8.2 10*3/uL (4.5-13.71)
[2016-11-22] MEDS: amLODIPine 5 MG TABLET PO SCH (08:39)
[2016-11-22] MEDS: METOPROLOL SUCCINATE XL 25 MG TABLET PO SCH (08:39)
[2016-11-22] MEDS: ATORVASTATIN 20 MG TABLET PO SCH (08:39)
[2016-11-22] MEDS: PANTOPRAZOLE 40 MG VIAL IV SCH (08:39)
--- NOTE | 2016-11-22 08:59 | Gastrointestinal Progress Note ---
<AlaynaHannah Bry - Last Filed: 11/22/16 08:54> Assessment and Plan (1) Melena Status: Acute Assessment and plan: 11/22-CT findings noted. Hgb 13. No overt bleeding. Plan for tentative outpatient c-scope upon discharge. Plan and addendum to follow by Dr Bailey. 11/21-Post EGD with no findings for melena. Pt refused C-scope prep, procedure cancelled. Will proceed with CT of abdomen/pelvis today. Hgb stable at 12. Plan and addendum to follow by DR Bailey. 11/17-Sudden onset of dark coffee ground emesis two days ago with reported dark runny stools x 2 days. No abd pain. Hgb stable at 12. Reports endoscopy of some type in past year, possibly [facility]. Check stool for occult blood. Monitor serial HH. Plan and addendum to follow by Dr Bailey. Gastroenterology - PN: Subj Interval history: CC: Melena, coffee ground emesis Pt is seen, awake, alert with at side. He rested well overnight. Denies any abdominal pain, nausea or vomiting. He has had no further coffee ground emesis or melena. Denies any abdominal pain. CT of abdomen with contrast on yesterday shows fatty infiltration of liver, hypodense area in spleen, limited contrast in some area of bowel with nonspecific thickening of the wall of the stomach. He and his have discussed proceeding with colonoscopy and feel that if they could return home and come back as outpatient he would do better with taking the prep. He was having difficulty with his bowels last night due to the contrast from the CT and difficulty passing the stool. Will advance his diet at this time. Abdomen is soft, nontender. ROS: Denies SOB or chest pain Exam (Progress Note) - Constitutional Vitals: Period Temp Pulse Resp BP Sys/Haque Pulse Ox Last 24 Hr 97.4 F-98.7 F 52-88 18-20 128-172/66-90 98-99 General appearance: normal weight, no acute distress - Head Head exam: Present: normal inspection, normocephalic - Eye Eye exam: Present: other (lids and conjunctiva unremarkable). Absent: scleral icterus - ENT ENT exam: Present: normal exam, normal oropharynx - Neck Neck exam: Present: normal inspection - Respiratory Respiratory exam: Present: clear to auscultation bilaterally. Absent: rales, rhonchi, wheezes - Cardiovascular Cardiovascular exam: Present: regular rate and rhythm. Absent: diastolic murmur , JVD, systolic murmur - GI/Abdominal GI/Abdominal exam: Present: normal bowel sounds, soft. Absent: ascites, distended, mass, organomegaly, tenderness - Extremities Exam Extremities exam: Present: normal inspection, full ROM - Back Exam Back exam: Present: normal inspection - Neurological Exam Neurological exam: Present: alert, oriented X3 - Psychiatric Psychiatric exam: Present: normal affect, normal mood - Skin Skin exam: Present: normal color, warm, dry Results - Labs CBC & BMP: 11/22/16 07:09 11/20/16 05:44 Lab Results: I have reviewed the past 24 hour labs Specialty Discharge - Follow Up or Referrals Follow up with: Tiburcio Bailey MD [Physician] - 12/19/16 8:30 am (Please check in with admissions and remain NPO after midnight prior to procedure.) Alexandre Yoder MD [Physician] - 12/25/16 2:00 pm <Tiburcio Bailey - Last Filed: 11/22/16 20:37> Exam (Progress Note) - Constitutional Vitals: Period Temp Pulse Resp BP Sys/Haque Pulse Ox Last 24 Hr 98.2 F-98.5 F 52-90 16-18 110-163/66-78 97-99 Results - Labs CBC & BMP: 11/22/16 07:09 11/20/16 05:44
--- NOTE | 2016-11-22 10:10 | Discharge Summary ---
<Jordyn Sandoval - Last Filed: 11/22/16 10:02> Hospital Course - Hospital Course Hospital Course: Mr. Alatorre was admitted with upper GI hemorrhage. He was had been having a few days of dark stools at home, along with episodes of vomiting. He was started on PPI and GI was consulted. Dr. Bailey saw on 11/17/16 for his melena. His H/H's remained stable. He was taken to the scope lab by Dr. Bailey on 11/30/16 for EGD. This showed the following : 1) occult positive stools with questionable melena and no clear source on upper endoscopy, proceed with c scope in am; 2) poor gastric insufflation. Proceed with CT scan abdomen/pelvis after c scope for concern over infiltrative process such as lienitis plastica. He had a hard time with his C scope prep and was not clear enough to be scoped. He and his both would like to do this outpatient at a later date. CT abdomen/ pelvis showed some thickening of the wall of his stomach. His labs and vitals are stable and he is ready for discharge home today on appropriate medications and follow up. - Time spent with patient Time with patient DS: Greater than 30 minutes (due to plan, doc and med) Diagnosis - Discharge Diagnosis (1) Upper gastrointestinal hemorrhage Status: Acute (2) Dark stools Status: Acute (3) Vomiting Status: Resolved Discharge Plan - Discharge Data Disposition: Disch To Home/Self Care - Discharge Medications New Pantoprazole Tab [Protonix Tab] 40 mg PO DAILY #30 tablet Continue Timolol 0.5% Oph Soln [Timoptic 0.5%] 1 drop BOTH EYES DAILY amLODIPine [Norvasc] 5 mg PO DAILY Metoprolol Succinate Xl [Toprol Xl] 25 mg PO DAILY Atorvastatin [Lipitor] 20 mg PO DAILY - Follow Up or Referral Follow Up: Tiburcio Bailey MD [Physician] - - Forms/Instructions Exam - Constitutional Vitals: Period Temp Pulse Resp BP Sys/Haque Pulse Ox Last 24 Hr 97.4 F-98.7 F 52-90 18-20 128-172/66-90 98-99 Discharge Results Labs on day of discharge: Labs from last 24 hours 11/22/16 07:09 WBC 8.2 RBC 5.09 Hgb 13.6 L Hct 38.7 L MCV 76.0 L MCH 27 MCHC 35.1 RDW 14.2 Plt Count 247 D MPV 10.4 Neut % (Auto) 78.7 H Lymph % (Auto) 13.6 L Grayson % (Auto) 5.0 Eos % (Auto) 2.1 Baso % (Auto) 0.2 Neut # (Auto) 6.4 Lymph # (Auto) 1.1 L Grayson # (Auto) 0.4 Eos # (Auto) 0.2 Baso # (Auto) 0.0 Immature Gran % 0.4 Nucleated RBC % 0.0 Immature Gran # 0.03 Nucleated RBCs # 0.00 DS: Provider Date of admission: 11/20/16 14:39 Primary care physician: . No PCP Attending physician on admission: Rafaela Jose MD Discharging clinician: Jordyn Sandoval NP Expected date of discharge: 11/22/16 <Rafaela Jose - Last Filed: 11/22/16 11:14> Hospital Course - Hospital Course Hospital Course: Patient seen and examined by me independently on the day of discharge. I had a lengthy conversation with the patient's at the bedside. He plans to follow up with Dr. Bailey as an outpatient for colonoscopy and further biopsy results from his EGD. Total discharge time for this patient including face-to- face time, critical documentation, medication reconciliation, discharge planning was 46 minutes. I have reviewed and discussed the documentation with the nurse practitioner and agree with her findings. Diagnosis - Discharge Diagnosis (1) Upper gastrointestinal hemorrhage Status: Acute Discharge Plan - Discharge Data Condition at Discharge: Stable Discharge Diet: advance to your usual diet Activity: resume usual activities as tolerated Contact your physician if you experience:: fever over 101, Nausea/Vomiting, Bleeding Exam - Constitutional General appearance: no acute distress - Head Head exam: Present: normal inspection, normocephalic, atraumatic - Respiratory Respiratory exam: Present: clear to auscultation bilaterally - Cardiovascular Cardiovascular exam: Present: regular rate and rhythm - GI/Abdominal GI/Abdominal exam: Present: normal bowel sounds, soft. Absent: tenderness, rebound - Neurological Exam Neurological exam: Present: alert - Psychiatric Psychiatric exam: Present: normal affect, normal mood
[2016-11-22 12:27] VITALS: BP 110/68
== END 2016-11-22 14:17 | disposition home or self-care (01) | DRG 379 ==
LOC: N.ED 07:34 → N.EDINP 10:01 → INTOOBSV 10:01 → N.EDINP 11:13 → N.5E 11:22
PROVIDERS: ADMIT Family Medicine; ATTEND Family Medicine

== ENCOUNTER 2018-10-10 01:53 | Inpatient (IN) ==
[2018-10-10] MEDS ORDERED: SODIUM CHLORIDE 0.9% 500 ML IV STA (02:27)
[2018-10-10 03:22] LABS: Basophils % 0.2 % (0.0-0.8); Hematocrit 37.5 VOL% (42.0-52.0); Hemoglobin 13.1 GM/DL (14.0-18.0); Immature Granulocytes % 0.8 %; Immature Granulocytes Absolute 0.12 #; Lymphocytes # 0.7 10*3/uL (1.4-4.0); Lymphocytes % 4.9 % (21.2-54.2); Mean Corpuscular HGB Conc 34.9 GM/DL (32-36); Mean Corpuscular Hemoglobin 27 PG (27-34); Mean Corpuscular Volume 77.3 FL (87-102); Mean Platelet Volume 11.3 FL (9.6-12.0); Monocytes # 0.6 10*3/uL (0.11-0.8); Monocytes % 4.3 % (1.7-12.7); Neutrophils # 13.3 10*3/uL (1.4-7.4); Neutrophils % 89.8 % (38.7-73.9); Platelet Count 219 T/CUMM (130-400); Red Blood Count 4.85 MC/CUMM (3.8-5.5); Red Cell Distribution Width 15.5 % (9.3-17.3); White Blood Count 14.8 T/CUMM (4-12)
[2018-10-10 03:29] LABS: PT Patient Result 10.9 SECS
[2018-10-10 03:33] LABS: Apearance,Urine CLEAR (Clear); Bilirubin,Urine Negative (Negative); Blood, Urine Negative (Negative); Glucose,Urine (UA) Negative (Negative); Hyaline Casts,Urine 6 /LPF (0-3); Ketones,Urine Negative (Negative); Mucus,Urine Occasional /LPF (Occasional); Nitrite,Urine Negative (Negative); Protein,Urine Negative; RBC,Urine 15 /HPF (0-4); Squamous Epithelial Cell,Urine Occasional /HPF (0-10); Urine Color Yellow (Yellow); Urine Specific Gravity 1.017 (1.001-1.035); WBC,Urine 1 /HPF (0-6)
[2018-10-10 03:41] LABS: Ammonia 46 UMOL/L (11-32); Barbiturates Screen,Urine Negative (Negative); Benzodiazepines Screen,Urine Negative (Negative); Cannabinoid Screen,Urine Negative (Negative); Opiate Screen,Urine Negative (Negative); Phencyclidine Screen,Urine Negative (Negative)
[2018-10-10 03:44] LABS: Lactic Acid 2.8 MMOL/L (0.4-2.0)
[2018-10-10] MEDS ORDERED: cefTRIAXone 1,000 MG in SODIUM CHLORIDE 0.9% 100 ML IV STA (03:46)
[2018-10-10 03:47] LABS: Alanine Aminotransferase 30 U/L (16-61); Albumin 3.3 G/DL (3.4-5.0); Alkaline Phosphatase 59 U/L (45-117); Aspartate Amino Transferase 21 U/L (0-37); Blood Urea Nitrogen 28 MG/DL (7-18); Calcium 9.4 MG/DL (8.5-10.1); Glucose 184 MG/DL (74-106); Osmolality,Calculated 293.1 MOS/KG (273-304); Potassium 3.9 MMOL/L (3.5-5.1); Sodium 142 MMOL/L (136-145); Total Protein 7.9 G/DL (6.4-8.3)
[2018-10-10 03:50] LABS: Troponin I 0.075 NG/ML (0.00-0.045)
[2018-10-10] MEDS ORDERED: PIPERACILLIN/TAZOBACTAM 3,375 MG in SODIUM CHLORIDE 0.9% 100 ML IV STA (04:00)
[2018-10-10] MEDS ORDERED: PIPERACILLIN/TAZOBACTAM 3,375 MG VIAL IV ONE (04:02)
[2018-10-10 04:04] LABS: Eosinophils 2 % (0-10); Lymphocytes 6 % (20-55); Platelet Estimate Normal; Segmented Neutrophils 88 % (50-85); Total Cells Counted 100
[2018-10-10] MEDS ORDERED: ACETAMINOPHEN 325 MG TABLET PO PRN (05:04)
[2018-10-10] MEDS ORDERED: ONDANSETRON 4 MG/2 ML VIAL IV PRN (05:04)
[2018-10-10] MEDS: SODIUM CHLORIDE 0.9% 1,000 ML IV SCH ×2 (05:10→17:27)
[2018-10-10] MEDS: ENOXAPARIN 40 MG/0.4 ML SYRINGE SUBCUT SCH (08:22)
[2018-10-10] MEDS: PANTOPRAZOLE 40 MG TABLET PO SCH (08:22)
[2018-10-10] MEDS: DOCUSATE SODIUM 100 MG CAPSULE PO SCH ×2 (08:22→20:14)
[2018-10-10 09:14] LABS: INR 1.1; PT Patient Result 11.7 SECS; Partial Thromboplastin Time 27.5 SECS (0-40)
[2018-10-10] MEDS: PIPERACILLIN/TAZOBACTAM 3,375 MG in SODIUM CHLORIDE 0.9% 100 ML IV SCH ×2 (12:43→20:14)
[2018-10-11] MEDS: PIPERACILLIN/TAZOBACTAM 3,375 MG in SODIUM CHLORIDE 0.9% 100 ML IV SCH ×3 (05:06→21:40)
[2018-10-11] MEDS: SODIUM CHLORIDE 0.9% 1,000 ML IV SCH (05:28)
[2018-10-11 06:04] LABS: Basophils % 0.3 % (0.0-0.8); Eosinophils # 0.1 10*3/uL (0.0-0.87); Eosinophils % 2.2 % (0.00-10.9); Hematocrit 32.4 VOL% (42.0-52.0); Immature Granulocytes % 0.5 %; Immature Granulocytes Absolute 0.03 #; Lymphocytes # 1.3 10*3/uL (1.4-4.0); Lymphocytes % 21.4 % (21.2-54.2); Mean Corpuscular Hemoglobin 27 PG (27-34); Mean Corpuscular Volume 78.1 FL (87-102); Mean Platelet Volume 11.5 FL (9.6-12.0); Monocytes # 0.7 10*3/uL (0.11-0.8); Monocytes % 12.1 % (1.7-12.7); Neutrophils # 3.8 10*3/uL (1.4-7.4); Neutrophils % 63.5 % (38.7-73.9); Platelet Count 167 T/CUMM (130-400); Red Blood Count 4.15 MC/CUMM (3.8-5.5); Red Cell Distribution Width 15.7 % (9.3-17.3); White Blood Count 5.9 T/CUMM (4-12)
[2018-10-11 06:24] LABS: Albumin 2.5 G/DL (3.4-5.0); Calcium 8.2 MG/DL (8.5-10.1); Potassium 3.9 MMOL/L (3.5-5.1); Total Protein 6.1 G/DL (6.4-8.3)
[2018-10-11 07:20] LABS: Eosinophils 2 % (0-10); Hypochromasia 1+; Lymphocytes 22 % (20-55); Ovalocytes Slight; Platelet Estimate Adequate; Segmented Neutrophils 67 % (50-85); Total Cells Counted 100
[2018-10-11] MEDS: PANTOPRAZOLE 40 MG TABLET PO SCH (08:47)
[2018-10-11] MEDS: ASPIRIN EC 81 MG TABLET PO SCH (08:47)
[2018-10-11] MEDS: ENOXAPARIN 40 MG/0.4 ML SYRINGE SUBCUT SCH (08:47)
[2018-10-11] MEDS: DOCUSATE SODIUM 100 MG CAPSULE PO SCH ×2 (08:47→21:40)
[2018-10-11] MEDS: ATORVASTATIN 20 MG TABLET PO SCH (08:47)
[2018-10-11] MEDS ORDERED: TUBERCULIN SKIN TEST 0.1 ML SYRINGE INTRADERM ONE (10:30)
[2018-10-12] MEDS: PIPERACILLIN/TAZOBACTAM 3,375 MG in SODIUM CHLORIDE 0.9% 100 ML IV SCH ×3 (04:46→20:37)
[2018-10-12] MEDS: SODIUM CHLORIDE 0.9% 1,000 ML IV SCH (06:08)
[2018-10-12] MEDS: ATORVASTATIN 20 MG TABLET PO SCH (08:27)
[2018-10-12] MEDS: PANTOPRAZOLE 40 MG TABLET PO SCH (08:27)
[2018-10-12] MEDS: DOCUSATE SODIUM 100 MG CAPSULE PO SCH ×2 (08:27→20:37)
[2018-10-12] MEDS: ASPIRIN EC 81 MG TABLET PO SCH (08:27)
[2018-10-12] MEDS: ENOXAPARIN 40 MG/0.4 ML SYRINGE SUBCUT SCH (08:27)
[2018-10-13] MEDS: PIPERACILLIN/TAZOBACTAM 3,375 MG in SODIUM CHLORIDE 0.9% 100 ML IV SCH ×3 (05:26→21:06)
[2018-10-13] MEDS: SODIUM CHLORIDE 0.9% 1,000 ML IV SCH ×2 (05:27)
[2018-10-13] MEDS: ATORVASTATIN 20 MG TABLET PO SCH (08:53)
[2018-10-13] MEDS: PANTOPRAZOLE 40 MG TABLET PO SCH (08:53)
[2018-10-13] MEDS: ENOXAPARIN 40 MG/0.4 ML SYRINGE SUBCUT SCH (08:53)
[2018-10-13] MEDS: ASPIRIN EC 81 MG TABLET PO SCH (08:53)
[2018-10-13] MEDS: DOCUSATE SODIUM 100 MG CAPSULE PO SCH ×2 (08:53→21:06)
[2018-10-14] MEDS: SODIUM CHLORIDE 0.9% 1,000 ML IV SCH ×3 (05:22→22:33)
[2018-10-14] MEDS: PIPERACILLIN/TAZOBACTAM 3,375 MG in SODIUM CHLORIDE 0.9% 100 ML IV SCH ×3 (05:23→22:32)
[2018-10-14] MEDS: PANTOPRAZOLE 40 MG TABLET PO SCH (10:03)
[2018-10-14] MEDS: ATORVASTATIN 20 MG TABLET PO SCH (10:03)
[2018-10-14] MEDS: ASPIRIN EC 81 MG TABLET PO SCH (10:03)
[2018-10-14] MEDS: DOCUSATE SODIUM 100 MG CAPSULE PO SCH ×2 (10:03→22:32)
[2018-10-14] MEDS: ENOXAPARIN 40 MG/0.4 ML SYRINGE SUBCUT SCH (10:04)
[2018-10-15] MEDS: SODIUM CHLORIDE 0.9% 1,000 ML IV SCH (00:13)
[2018-10-15 03:58] LABS: Basophils % 0.6 % (0.0-0.8); Eosinophils # 0.2 10*3/uL (0.0-0.87); Eosinophils % 3.2 % (0.00-10.9); Hematocrit 36.6 VOL% (42.0-52.0); Hemoglobin 12.3 GM/DL (14.0-18.0); Immature Granulocytes % 0.8 %; Immature Granulocytes Absolute 0.06 #; Lymphocytes # 1.8 10*3/uL (1.4-4.0); Lymphocytes % 25.4 % (21.2-54.2); Mean Corpuscular HGB Conc 33.6 GM/DL (32-36); Mean Corpuscular Hemoglobin 26 PG (27-34); Mean Platelet Volume 11.2 FL (9.6-12.0); Monocytes # 0.6 10*3/uL (0.11-0.8); Monocytes % 8.3 % (1.7-12.7); Neutrophils # 4.5 10*3/uL (1.4-7.4); Neutrophils % 61.7 % (38.7-73.9); Platelet Count 227 T/CUMM (130-400); Red Blood Count 4.69 MC/CUMM (3.8-5.5); Red Cell Distribution Width 15.5 % (9.3-17.3); White Blood Count 7.2 T/CUMM (4-12)
[2018-10-15] MEDS: PIPERACILLIN/TAZOBACTAM 3,375 MG in SODIUM CHLORIDE 0.9% 100 ML IV SCH ×3 (04:02→20:55)
[2018-10-15 04:22] LABS: Calcium 9.4 MG/DL (8.5-10.1); Osmolality,Calculated 286.8 MOS/KG (273-304); Potassium 3.6 MMOL/L (3.5-5.1)
[2018-10-15] MEDS: ATORVASTATIN 20 MG TABLET PO SCH (09:03)
[2018-10-15] MEDS: PANTOPRAZOLE 40 MG TABLET PO SCH (09:03)
[2018-10-15] MEDS: ASPIRIN EC 81 MG TABLET PO SCH (09:05)
[2018-10-15] MEDS: ENOXAPARIN 40 MG/0.4 ML SYRINGE SUBCUT SCH (09:05)
[2018-10-15] MEDS: DOCUSATE SODIUM 100 MG CAPSULE PO SCH ×2 (09:05→20:56)
[2018-10-16] MEDS: SODIUM CHLORIDE 0.9% 1,000 ML IV SCH (02:24)
[2018-10-16] MEDS: PIPERACILLIN/TAZOBACTAM 3,375 MG in SODIUM CHLORIDE 0.9% 100 ML IV SCH ×3 (05:45→21:32)
[2018-10-16] MEDS: ENOXAPARIN 40 MG/0.4 ML SYRINGE SUBCUT SCH (10:13)
[2018-10-16] MEDS: DOCUSATE SODIUM 100 MG CAPSULE PO SCH ×2 (10:13→21:30)
[2018-10-16] MEDS: ASPIRIN EC 81 MG TABLET PO SCH (10:13)
[2018-10-16] MEDS: PANTOPRAZOLE 40 MG TABLET PO SCH (10:13)
[2018-10-16] MEDS: ATORVASTATIN 20 MG TABLET PO SCH (10:13)
[2018-10-17] MEDS: SODIUM CHLORIDE 0.9% 1,000 ML IV SCH (05:19)
[2018-10-17] MEDS: PIPERACILLIN/TAZOBACTAM 3,375 MG in SODIUM CHLORIDE 0.9% 100 ML IV SCH (05:20)
[2018-10-17] MEDS: DOCUSATE SODIUM 100 MG CAPSULE PO SCH ×2 (09:14→21:47)
[2018-10-17] MEDS: ATORVASTATIN 20 MG TABLET PO SCH (09:14)
[2018-10-17] MEDS: ASPIRIN EC 81 MG TABLET PO SCH (09:14)
[2018-10-17] MEDS: PANTOPRAZOLE 40 MG TABLET PO SCH (09:14)
[2018-10-17] MEDS: ENOXAPARIN 40 MG/0.4 ML SYRINGE SUBCUT SCH (09:14)
[2018-10-17] MEDS: TIMOLOL 0.5% BOTH EYES SCH (11:36)
[2018-10-18] MEDS: DOCUSATE SODIUM 100 MG CAPSULE PO SCH (08:23)
[2018-10-18] MEDS: ENOXAPARIN 40 MG/0.4 ML SYRINGE SUBCUT SCH (08:23)
[2018-10-18] MEDS: ATORVASTATIN 20 MG TABLET PO SCH (08:23)
[2018-10-18] MEDS: ASPIRIN EC 81 MG TABLET PO SCH (08:23)
[2018-10-18] MEDS: TIMOLOL 0.5% BOTH EYES SCH (08:24)
[2018-10-18] MEDS: PANTOPRAZOLE 40 MG TABLET PO SCH (08:28)
[2018-10-18 11:56] VITALS: BP 153/69
== END 2018-10-18 13:30 | disposition home health service (06) | DRG 57 ==
LOC: N.ED 01:53 → N.EDINP 04:03 → N.2E 04:38
PROVIDERS: ADMIT Family Medicine; ATTEND Family Medicine

== ENCOUNTER 2020-01-11 17:10 | Inpatient (IN) ==
[2020-01-11] MEDS ORDERED: SODIUM CHLORIDE 0.9% 1,000 ML IV STA (18:27)
[2020-01-11 19:03] LABS: Basophils % 0.1 % (0.0-0.8); Hematocrit 40.2 VOL% (42.0-52.0); Hemoglobin 13.6 GM/DL (14.0-18.0); Immature Granulocytes % 0.5 %; Immature Granulocytes Absolute 0.07 #; Lymphocytes # 1.2 10*3/uL (1.4-4.0); Lymphocytes % 7.8 % (21.2-54.2); Mean Corpuscular HGB Conc 33.8 GM/DL (32-36); Mean Platelet Volume 11.5 FL (9.6-12.0); Monocytes % 6.6 % (1.7-12.7); Platelet Count 212 T/CUMM (130-400); Red Blood Count 5.09 MC/CUMM (3.8-5.5); Red Cell Distribution Width 15.2 % (9.3-17.3)
[2020-01-11 19:14] LABS: PT Patient Result 11.2 SECS (9.6-12.2)
[2020-01-11 19:45] LABS: Albumin 3.2 G/DL (3.4-5.0); Bilirubin,Total 0.6 MG/DL (0.2-1.0); Calcium 9.9 MG/DL (8.5-10.1); Osmolality,Calculated 290.3 MOS/KG (273-304); Total Protein 8.1 G/DL (6.4-8.3)
[2020-01-11] MEDS ORDERED: LEVOFLOXACIN INJ 750 MG in PREMIX 1 EACH IV STA (20:17)
[2020-01-11 20:24] LABS: Apearance,Urine CLEAR (Clear); Bacteria,Urine Occasional /HPF (Few); Bilirubin,Urine Negative (Negative); Blood, Urine Moderate mg/dL (Negative); Glucose,Urine (UA) Negative (Negative); Hyaline Casts,Urine 1 /LPF (0-3); Ketones,Urine Negative (Negative); Mucus,Urine Moderate /LPF (Occasional); Nitrite,Urine Negative (Negative); Protein,Urine Negative; RBC,Urine 101 /HPF (0-4); Squamous Epithelial Cell,Urine Few /HPF (0-10); Urine Color Yellow (Yellow); Urine Specific Gravity 1.043 (1.001-1.035); Urine Urobilinogen < 2.0 EU/DL (0.2-1.0); WBC,Urine 1 /HPF (0-6)
[2020-01-11] MEDS ORDERED: GLUCAGON 1 MG VIAL IM PRN (21:17)
[2020-01-11] MEDS ORDERED: NICOTINE 21 MG/24 HR PATCH TRANSDERM PRN (21:17)
[2020-01-11] MEDS ORDERED: MORPHINE 4 MG/1 ML VIAL IV PRN (21:17)
[2020-01-11] MEDS ORDERED: ONDANSETRON 4 MG/2 ML VIAL IV PRN (21:17)
[2020-01-11] MEDS ORDERED: hydrALAZINE 20 MG/1 ML VIAL IV PRN (21:17)
[2020-01-11] MEDS ORDERED: DEXTROSE 50% 25 GM/50 ML SYRINGE IV PRN (21:17)
[2020-01-11] MEDS ORDERED: LEVOFLOXACIN INJ 500 MG in PREMIX 1 EACH IV SCH (21:30)
[2020-01-11] MEDS: SODIUM CHLORIDE 0.9% 1,000 ML IV SCH (23:26)
[2020-01-11] MEDS: PANTOPRAZOLE 40 MG VIAL IV SCH (23:26)
[2020-01-11] MEDS: INSULIN REGULAR 100 UNIT/ML SUBCUT SCH (23:38)
[2020-01-12] MEDS: metroNIDAZOLE INJ 500 MG in PREMIX 1 EACH IV SCH ×2 (00:27→11:59)
[2020-01-12] MEDS: ALBUTEROL/IPRATROPIUM 3 ML NEB RESP TX SCH ×5 (00:50→19:04)
[2020-01-12 07:15] LABS: Basophils % 0.2 % (0.0-0.8); Eosinophils % 0.2 % (0.00-10.9); Hematocrit 30.9 VOL% (42.0-52.0); Hemoglobin 10.8 GM/DL (14.0-18.0); Immature Granulocytes % 0.6 %; Immature Granulocytes Absolute 0.08 #; Lymphocytes # 1.2 10*3/uL (1.4-4.0); Lymphocytes % 9.3 % (21.2-54.2); Mean Corpuscular Volume 76.3 FL (87-102); Mean Platelet Volume 11.5 FL (9.6-12.0); Monocytes % 9.8 % (1.7-12.7); Neutrophils % 79.9 % (38.7-73.9); Platelet Count 172 T/CUMM (130-400); Red Blood Count 4.05 MC/CUMM (3.8-5.5); Red Cell Distribution Width 15.4 % (9.3-17.3)
[2020-01-12 07:35] LABS: Albumin 2.4 G/DL (3.4-5.0); Bilirubin,Total 1.3 MG/DL (0.2-1.0); Calcium 8.8 MG/DL (8.5-10.1); Osmolality,Calculated 289.1 MOS/KG (273-304); Total Protein 6.1 G/DL (6.4-8.3)
[2020-01-12] MEDS: INSULIN REGULAR 100 UNIT/ML SUBCUT SCH ×4 (07:49→22:02)
[2020-01-12] MEDS: PANTOPRAZOLE 40 MG VIAL IV SCH ×2 (09:22→22:00)
[2020-01-12] MEDS: METOPROLOL SUCCINATE XL 25 MG TABLET PO SCH (10:37)
[2020-01-12] MEDS: SODIUM CHLORIDE 0.9% 1,000 ML IV SCH ×2 (17:56→18:47)
[2020-01-12] MEDS: ATORVASTATIN 40 MG TABLET PO SCH (22:01)
[2020-01-12] MEDS: CIPROFLOXACIN INJ 400 MG in PREMIX 1 EACH IV SCH (22:01)
[2020-01-13] MEDS: SODIUM CHLORIDE 0.9% 1,000 ML IV SCH ×3 (00:34→22:22)
[2020-01-13] MEDS: metroNIDAZOLE INJ 500 MG in PREMIX 1 EACH IV SCH ×2 (00:45→14:44)
[2020-01-13] MEDS: ALBUTEROL/IPRATROPIUM 3 ML NEB RESP TX SCH ×4 (01:08→18:00)
[2020-01-13 06:41] LABS: Basophils % 0.4 % (0.0-0.8); Eosinophils # 0.2 10*3/uL (0.0-0.87); Eosinophils % 2.7 % (0.00-10.9); Hematocrit 33.4 VOL% (42.0-52.0); Immature Granulocytes % 0.7 %; Immature Granulocytes Absolute 0.06 #; Lymphocytes # 1.5 10*3/uL (1.4-4.0); Lymphocytes % 17.9 % (21.2-54.2); Mean Corpuscular HGB Conc 32.9 GM/DL (32-36); Mean Corpuscular Volume 79.9 FL (87-102); Mean Platelet Volume 11.9 FL (9.6-12.0); Monocytes % 9.4 % (1.7-12.7); Neutrophils % 68.9 % (38.7-73.9); Platelet Count 199 T/CUMM (130-400); Red Blood Count 4.18 MC/CUMM (3.8-5.5); Red Cell Distribution Width 15.3 % (9.3-17.3); White Blood Count 8.6 T/CUMM (4-12)
[2020-01-13 07:05] LABS: Calcium 9.3 MG/DL (8.5-10.1); Osmolality,Calculated 280.4 MOS/KG (273-304)
[2020-01-13] MEDS ORDERED: MAGNESIUM SULF RIDER 4 GM in PREMIX 1 EACH IV PRN (08:09)
[2020-01-13] MEDS ORDERED: MAGNESIUM SULF RIDER 2 GM in PREMIX 1 EACH IV PRN (08:09)
[2020-01-13] MEDS ORDERED: propofoL 200 MG/20 ML VIAL IV ONE (09:00)
[2020-01-13] MEDS ORDERED: LIDOCAINE 2% 5 ML VIAL ONE (09:00)
[2020-01-13] MEDS ORDERED: PHENYLEPHRINE 1 MG/10 ML SYRINGE IV ONE (09:00)
[2020-01-13] MEDS: LACTATED RINGERS 1,000 ML IV SCH (09:01)
[2020-01-13] MEDS: INSULIN REGULAR 100 UNIT/ML SUBCUT SCH ×4 (09:01→22:30)
[2020-01-13] MEDS: PANTOPRAZOLE 40 MG VIAL IV SCH ×2 (09:01→22:34)
[2020-01-13] MEDS: METOPROLOL SUCCINATE XL 25 MG TABLET PO SCH (09:03)
[2020-01-13] MEDS: CIPROFLOXACIN INJ 400 MG in PREMIX 1 EACH IV SCH ×2 (12:54→22:34)
[2020-01-13] MEDS: ATORVASTATIN 40 MG TABLET PO SCH (22:34)
[2020-01-14] MEDS: ALBUTEROL/IPRATROPIUM 3 ML NEB RESP TX SCH ×4 (00:10→20:09)
[2020-01-14] MEDS: metroNIDAZOLE INJ 500 MG in PREMIX 1 EACH IV SCH ×2 (00:49→12:54)
[2020-01-14 05:20] LABS: Basophils % 0.2 % (0.0-0.8); Eosinophils # 0.1 10*3/uL (0.0-0.87); Eosinophils % 1.3 % (0.00-10.9); Hematocrit 31.1 VOL% (42.0-52.0); Hemoglobin 10.5 GM/DL (14.0-18.0); Immature Granulocytes % 0.6 %; Immature Granulocytes Absolute 0.07 #; Lymphocytes # 1.2 10*3/uL (1.4-4.0); Lymphocytes % 10.9 % (21.2-54.2); Mean Corpuscular HGB Conc 33.8 GM/DL (32-36); Mean Corpuscular Volume 78.7 FL (87-102); Mean Platelet Volume 11.3 FL (9.6-12.0); Monocytes % 7.9 % (1.7-12.7); Neutrophils % 79.1 % (38.7-73.9); Platelet Count 195 T/CUMM (130-400); Red Blood Count 3.95 MC/CUMM (3.8-5.5); Red Cell Distribution Width 14.9 % (9.3-17.3); White Blood Count 10.9 T/CUMM (4-12)
[2020-01-14 05:51] LABS: Calcium 8.8 MG/DL (8.5-10.1); Osmolality,Calculated 283.1 MOS/KG (273-304)
[2020-01-14] MEDS: LACTATED RINGERS 1,000 ML IV SCH (08:18)
[2020-01-14] MEDS: PANTOPRAZOLE 40 MG VIAL IV SCH ×2 (09:44→21:47)
[2020-01-14] MEDS: METOPROLOL SUCCINATE XL 25 MG TABLET PO SCH (09:44)
[2020-01-14] MEDS: CIPROFLOXACIN INJ 400 MG in PREMIX 1 EACH IV SCH ×2 (09:45→21:47)
[2020-01-14] MEDS: INSULIN REGULAR 100 UNIT/ML SUBCUT SCH ×4 (10:05→22:00)
[2020-01-14] MEDS: SODIUM CHLORIDE 0.9% 1,000 ML IV SCH (18:20)
[2020-01-14] MEDS: ATORVASTATIN 40 MG TABLET PO SCH (21:47)
[2020-01-15] MEDS: metroNIDAZOLE INJ 500 MG in PREMIX 1 EACH IV SCH ×2 (01:51→12:24)
[2020-01-15] MEDS: ALBUTEROL/IPRATROPIUM 3 ML NEB RESP TX SCH ×4 (02:40→19:36)
[2020-01-15 05:49] LABS: Folate 7.7 NG/ML (5.4-24.0)
[2020-01-15 05:51] LABS: Risk Ratio 1.59; Thyroid Stimulating Hormone 1.46 uIU/ml (0.358-3.74)
[2020-01-15] MEDS: LACTATED RINGERS 1,000 ML IV SCH (07:40)
[2020-01-15] MEDS: INSULIN REGULAR 100 UNIT/ML SUBCUT SCH ×4 (07:40→23:44)
[2020-01-15] MEDS: METOPROLOL SUCCINATE XL 25 MG TABLET PO SCH (08:53)
[2020-01-15] MEDS: PANTOPRAZOLE 40 MG VIAL IV SCH ×2 (08:55→22:30)
[2020-01-15] MEDS: CIPROFLOXACIN INJ 400 MG in PREMIX 1 EACH IV SCH ×2 (08:57→22:35)
[2020-01-15] MEDS: SODIUM CHLORIDE 0.9% 1,000 ML IV SCH ×2 (09:00→22:30)
[2020-01-15 12:30] LABS: Basophils % 0.2 % (0.0-0.8); Eosinophils # 0.2 10*3/uL (0.0-0.87); Hematocrit 32.4 VOL% (42.0-52.0); Hemoglobin 10.8 GM/DL (14.0-18.0); Immature Granulocytes % 1.1 %; Immature Granulocytes Absolute 0.09 #; Lymphocytes # 1.1 10*3/uL (1.4-4.0); Lymphocytes % 13.7 % (21.2-54.2); Mean Corpuscular HGB Conc 33.3 GM/DL (32-36); Mean Corpuscular Volume 79.8 FL (87-102); Mean Platelet Volume 11.2 FL (9.6-12.0); Monocytes % 8.3 % (1.7-12.7); Neutrophils % 73.7 % (38.7-73.9); Platelet Count 235 T/CUMM (130-400); Red Blood Count 4.06 MC/CUMM (3.8-5.5); Red Cell Distribution Width 15.1 % (9.3-17.3); White Blood Count 8.1 T/CUMM (4-12)
[2020-01-15 12:51] LABS: Albumin 2.6 G/DL (3.4-5.0); Bilirubin,Total 0.5 MG/DL (0.2-1.0); Calcium 8.8 MG/DL (8.5-10.1); Osmolality,Calculated 278.4 MOS/KG (273-304); Total Protein 6.7 G/DL (6.4-8.3)
[2020-01-15] MEDS: HALOPERIDOL 5 MG/ML AMP IM PRN (15:20)
[2020-01-15] MEDS: ATORVASTATIN 40 MG TABLET PO SCH (22:30)
[2020-01-16] MEDS: ALBUTEROL/IPRATROPIUM 3 ML NEB RESP TX SCH ×4 (00:17→20:15)
[2020-01-16] MEDS: metroNIDAZOLE INJ 500 MG in PREMIX 1 EACH IV SCH (00:32)
[2020-01-16] MEDS: HALOPERIDOL 5 MG/ML AMP IM PRN ×2 (04:55→19:58)
[2020-01-16 06:21] LABS: Basophils % 0.2 % (0.0-0.8); Hematocrit 32.8 VOL% (42.0-52.0); Hemoglobin 11.2 GM/DL (14.0-18.0); Immature Granulocytes Absolute 0.16 #; Lymphocytes # 0.7 10*3/uL (1.4-4.0); Lymphocytes % 4.3 % (21.2-54.2); Mean Corpuscular HGB Conc 34.1 GM/DL (32-36); Mean Corpuscular Volume 77.4 FL (87-102); Mean Platelet Volume 10.9 FL (9.6-12.0); Monocytes % 6.2 % (1.7-12.7); Neutrophils % 88.3 % (38.7-73.9); Platelet Count 244 T/CUMM (130-400); Red Blood Count 4.24 MC/CUMM (3.8-5.5); Red Cell Distribution Width 15.3 % (9.3-17.3); White Blood Count 16.8 T/CUMM (4-12)
[2020-01-16 06:40] LABS: Albumin 2.7 G/DL (3.4-5.0); Bilirubin,Total 0.6 MG/DL (0.2-1.0); Calcium 8.9 MG/DL (8.5-10.1); Osmolality,Calculated 278.7 MOS/KG (273-304); Total Protein 6.9 G/DL (6.4-8.3)
[2020-01-16 07:14] LABS: Hypochromasia 1+; Lymphocytes 5 % (20-55); Segmented Neutrophils 92 % (50-85); Total Cells Counted 100
[2020-01-16 07:15] LABS: Anisocytosis 1+; Microcytosis 1+; Platelet Estimate Normal; Polychromasia Slight
[2020-01-16 07:36] LABS: ABG Base Excess 1.3 MMOL/L (-2.5-2.5); ABG HCO3 24.2 MMOL/L (20-26); ABG Oxygen Saturation 92.1 % (95-100); ABG PCO2 32.5 MM HG (35-48); ABG PO2 62.2 MM HG (80-95); ABG TCO2 25.2 MMOL/L (23-27)
[2020-01-16 08:07] LABS: INR 1.1; PT Patient Result 12.1 SECS (9.6-12.2)
[2020-01-16 08:17] LABS: Calcium 8.9 MG/DL (8.5-10.1); Osmolality,Calculated 283.4 MOS/KG (273-304)
[2020-01-16] MEDS ORDERED: VANCOMYCIN INJ 1,500 MG in SODIUM CHLORIDE 0.9% 500 ML IV ONE (08:30)
[2020-01-16] MEDS ORDERED: VANCOMYCIN INJ 1,250 MG in SODIUM CHLORIDE 0.9% 250 ML IV PRN (08:40)
[2020-01-16] MEDS: INSULIN REGULAR 100 UNIT/ML SUBCUT SCH ×4 (09:56→20:41)
[2020-01-16] MEDS: DEXTROSE 5% LACTATED RINGERS 1,000 ML IV SCH ×4 (10:22→21:10)
[2020-01-16] MEDS: MEROPENEM 500 MG in SODIUM CHLORIDE 0.9% 100 ML IV SCH ×2 (10:45→17:00)
[2020-01-16] MEDS: PANTOPRAZOLE 40 MG VIAL IV SCH ×2 (10:46→20:41)
[2020-01-16] MEDS: METOPROLOL SUCCINATE XL 25 MG TABLET PO SCH (11:51)
[2020-01-16] MEDS ORDERED: TUBERCULIN SKIN TEST 0.1 ML SYRINGE INTRADERM ONE (15:01)
[2020-01-16] MEDS ORDERED: LABETALOL 20 MG/4 ML SYRINGE IV PRN (18:45)
[2020-01-16] MEDS: ATORVASTATIN 40 MG TABLET PO SCH (20:45)
[2020-01-16] MEDS ORDERED: SODIUM CHLORIDE 0.9% 1,000 ML IV ONE (21:44)
[2020-01-17] MEDS: ALBUTEROL/IPRATROPIUM 3 ML NEB RESP TX SCH ×4 (01:05→19:07)
[2020-01-17] MEDS: MEROPENEM 500 MG in SODIUM CHLORIDE 0.9% 100 ML IV SCH ×3 (01:50→15:37)
[2020-01-17 04:40] LABS: Basophils % 0.1 % (0.0-0.8); Eosinophils % 0.2 % (0.00-10.9); Hematocrit 28.9 VOL% (42.0-52.0); Hemoglobin 9.9 GM/DL (14.0-18.0); Immature Granulocytes % 0.8 %; Immature Granulocytes Absolute 0.14 #; Lymphocytes % 5.9 % (21.2-54.2); Mean Corpuscular HGB Conc 34.3 GM/DL (32-36); Mean Corpuscular Volume 78.7 FL (87-102); Mean Platelet Volume 10.8 FL (9.6-12.0); Monocytes % 6.3 % (1.7-12.7); Neutrophils % 86.7 % (38.7-73.9); Platelet Count 173 T/CUMM (130-400); Red Blood Count 3.67 MC/CUMM (3.8-5.5); Red Cell Distribution Width 15.3 % (9.3-17.3); White Blood Count 17.4 T/CUMM (4-12)
[2020-01-17 05:09] LABS: Troponin I 0.436 NG/ML (0.00-0.045)
[2020-01-17] MEDS: DEXTROSE 5% LACTATED RINGERS 1,000 ML IV SCH ×5 (05:10→23:05)
[2020-01-17 05:44] LABS: Albumin 2.7 G/DL (3.4-5.0); Bilirubin,Total 0.6 MG/DL (0.2-1.0); Calcium 8.7 MG/DL (8.5-10.1); Osmolality,Calculated 290.1 MOS/KG (273-304); Total Protein 6.4 G/DL (6.4-8.3)
[2020-01-17 06:58] LABS: Apearance,Urine CLEAR (Clear); Bilirubin,Urine Negative (Negative); Blood, Urine Moderate mg/dL (Negative); Glucose,Urine (UA) Negative (Negative); Ketones,Urine Negative (Negative); Mucus,Urine Occasional /LPF (Occasional); Nitrite,Urine Negative (Negative); Protein,Urine Negative; RBC,Urine 28 /HPF (0-4); Urine Color Yellow (Yellow); Urine Urobilinogen < 2.0 EU/DL (0.2-1.0); WBC,Urine <1 /HPF (0-6)
[2020-01-17] MEDS: INSULIN REGULAR 100 UNIT/ML SUBCUT SCH ×4 (08:32→21:11)
[2020-01-17] MEDS: PANTOPRAZOLE 40 MG VIAL IV SCH ×2 (09:12→21:31)
[2020-01-17] MEDS: METOPROLOL SUCCINATE XL 25 MG TABLET PO SCH (11:48)
[2020-01-17] MEDS: ATORVASTATIN 40 MG TABLET PO SCH (21:31)
[2020-01-18] MEDS: ALBUTEROL/IPRATROPIUM 3 ML NEB RESP TX SCH ×3 (00:20→19:50)
[2020-01-18] MEDS: MEROPENEM 500 MG in SODIUM CHLORIDE 0.9% 100 ML IV SCH ×4 (01:33→22:28)
[2020-01-18 07:48] LABS: Basophils % 0.3 % (0.0-0.8); Eosinophils # 0.5 10*3/uL (0.0-0.87); Eosinophils % 4.2 % (0.00-10.9); Hematocrit 26.6 VOL% (42.0-52.0); Immature Granulocytes % 1.2 %; Immature Granulocytes Absolute 0.13 #; Lymphocytes # 1.1 10*3/uL (1.4-4.0); Lymphocytes % 9.7 % (21.2-54.2); Mean Corpuscular HGB Conc 33.8 GM/DL (32-36); Mean Platelet Volume 10.8 FL (9.6-12.0); Monocytes % 8.7 % (1.7-12.7); Neutrophils % 75.9 % (38.7-73.9); Platelet Count 152 T/CUMM (130-400); Red Blood Count 3.41 MC/CUMM (3.8-5.5); Red Cell Distribution Width 15.4 % (9.3-17.3); White Blood Count 10.9 T/CUMM (4-12)
[2020-01-18] MEDS: INSULIN REGULAR 100 UNIT/ML SUBCUT SCH ×4 (08:01→21:50)
[2020-01-18 08:17] LABS: Albumin 2.3 G/DL (3.4-5.0); Bilirubin,Total 0.6 MG/DL (0.2-1.0); Calcium 8.6 MG/DL (8.5-10.1); Osmolality,Calculated 291.6 MOS/KG (273-304); Total Protein 5.8 G/DL (6.4-8.3)
[2020-01-18] MEDS: METOPROLOL SUCCINATE XL 25 MG TABLET PO SCH (09:12)
[2020-01-18] MEDS: PANTOPRAZOLE 40 MG VIAL IV SCH ×2 (09:13→22:28)
[2020-01-18] MEDS: DEXTROSE 5% LACTATED RINGERS 1,000 ML IV SCH ×2 (10:10→18:46)
[2020-01-18] MEDS ORDERED: VANCOMYCIN INJ 1,250 MG in SODIUM CHLORIDE 0.9% 250 ML IV SCH (12:00)
[2020-01-18] MEDS: ATORVASTATIN 40 MG TABLET PO SCH (22:01)
[2020-01-18] MEDS: TAMSULOSIN 0.4 MG CAPSULE PO SCH (22:02)
[2020-01-19] MEDS: ALBUTEROL/IPRATROPIUM 3 ML NEB RESP TX SCH ×5 (01:05→19:25)
[2020-01-19] MEDS: MEROPENEM 500 MG in SODIUM CHLORIDE 0.9% 100 ML IV SCH ×4 (05:21→21:20)
[2020-01-19] MEDS: DEXTROSE 5% LACTATED RINGERS 1,000 ML IV SCH ×4 (05:33→21:09)
[2020-01-19 05:55] LABS: Bilirubin,Total 0.8 MG/DL (0.2-1.0); Calcium 8.2 MG/DL (8.5-10.1); Osmolality,Calculated 283.8 MOS/KG (273-304); Total Protein 5.3 G/DL (6.4-8.3)
[2020-01-19 06:24] LABS: Basophils % 0.2 % (0.0-0.8); Eosinophils # 0.3 10*3/uL (0.0-0.87); Eosinophils % 3.2 % (0.00-10.9); Hematocrit 24.2 VOL% (42.0-52.0); Hemoglobin 8.1 GM/DL (14.0-18.0); Immature Granulocytes Absolute 0.17 #; Lymphocytes # 1.3 10*3/uL (1.4-4.0); Lymphocytes % 15.6 % (21.2-54.2); Mean Corpuscular HGB Conc 33.5 GM/DL (32-36); Mean Corpuscular Volume 78.1 FL (87-102); Mean Platelet Volume 10.5 FL (9.6-12.0); Monocytes % 9.7 % (1.7-12.7); Neutrophils % 69.3 % (38.7-73.9); Platelet Count 163 T/CUMM (130-400); Red Cell Distribution Width 15.1 % (9.3-17.3); White Blood Count 8.4 T/CUMM (4-12)
[2020-01-19] MEDS: PANTOPRAZOLE 40 MG VIAL IV SCH ×2 (08:58→21:11)
[2020-01-19] MEDS: TAMSULOSIN 0.4 MG CAPSULE PO SCH ×2 (08:58→21:10)
[2020-01-19] MEDS: TIMOLOL 0.5% OPH SOLN 5 ML BOTTLE BOTH EYES SCH (08:58)
[2020-01-19] MEDS: METOPROLOL SUCCINATE XL 25 MG TABLET PO SCH (08:58)
[2020-01-19] MEDS: INSULIN REGULAR 100 UNIT/ML SUBCUT SCH ×4 (09:00→21:10)
[2020-01-19] MEDS: POTASSIUM CHLORIDE 10 MEQ TABLET PO SCH (21:10)
[2020-01-19] MEDS: ATORVASTATIN 40 MG TABLET PO SCH (21:10)
[2020-01-20] MEDS: ALBUTEROL/IPRATROPIUM 3 ML NEB RESP TX SCH ×4 (00:40→19:13)
[2020-01-20] MEDS: MEROPENEM 500 MG in SODIUM CHLORIDE 0.9% 100 ML IV SCH ×4 (03:04→20:53)
[2020-01-20] MEDS: DEXTROSE 5% LACTATED RINGERS 1,000 ML IV SCH ×3 (03:06→18:05)
[2020-01-20] MEDS: PANTOPRAZOLE 40 MG VIAL IV SCH ×2 (09:10→20:57)
[2020-01-20] MEDS: METOPROLOL SUCCINATE XL 25 MG TABLET PO SCH (09:10)
[2020-01-20] MEDS: INSULIN REGULAR 100 UNIT/ML SUBCUT SCH ×4 (09:11→20:32)
[2020-01-20] MEDS: POTASSIUM CHLORIDE 10 MEQ TABLET PO SCH ×2 (09:11→20:50)
[2020-01-20] MEDS: TAMSULOSIN 0.4 MG CAPSULE PO SCH ×2 (09:11→20:54)
[2020-01-20] MEDS ORDERED: TUBERCULIN SKIN TEST 0.1 ML SYRINGE INTRADERM ONE (09:43)
[2020-01-20] MEDS: TIMOLOL 0.5% OPH SOLN 5 ML BOTTLE BOTH EYES SCH (10:07)
[2020-01-20] MEDS: ATORVASTATIN 40 MG TABLET PO SCH (20:51)
[2020-01-21] MEDS: ALBUTEROL/IPRATROPIUM 3 ML NEB RESP TX SCH ×4 (00:26→19:54)
[2020-01-21] MEDS: MEROPENEM 500 MG in SODIUM CHLORIDE 0.9% 100 ML IV SCH ×3 (02:33→14:40)
[2020-01-21] MEDS: DEXTROSE 5% LACTATED RINGERS 1,000 ML IV SCH ×2 (02:33→14:40)
[2020-01-21 07:25] LABS: Basophils % 0.2 % (0.0-0.8); Eosinophils # 0.3 10*3/uL (0.0-0.87); Eosinophils % 3.6 % (0.00-10.9); Hematocrit 26.5 VOL% (42.0-52.0); Hemoglobin 8.7 GM/DL (14.0-18.0); Immature Granulocytes % 1.5 %; Immature Granulocytes Absolute 0.13 #; Lymphocytes # 1.3 10*3/uL (1.4-4.0); Lymphocytes % 14.7 % (21.2-54.2); Mean Corpuscular HGB Conc 32.8 GM/DL (32-36); Mean Corpuscular Volume 79.6 FL (87-102); Mean Platelet Volume 10.7 FL (9.6-12.0); Platelet Count 174 T/CUMM (130-400); Red Blood Count 3.33 MC/CUMM (3.8-5.5); Red Cell Distribution Width 14.9 % (9.3-17.3); White Blood Count 8.8 T/CUMM (4-12)
[2020-01-21 07:42] LABS: Calcium 8.1 MG/DL (8.5-10.1); Osmolality,Calculated 285.8 MOS/KG (273-304)
[2020-01-21] MEDS: INSULIN REGULAR 100 UNIT/ML SUBCUT SCH ×4 (09:08→21:35)
[2020-01-21] MEDS: POTASSIUM CHLORIDE 10 MEQ TABLET PO SCH ×2 (09:10→21:28)
[2020-01-21] MEDS: PANTOPRAZOLE 40 MG VIAL IV SCH ×2 (09:10→21:29)
[2020-01-21] MEDS: METOPROLOL SUCCINATE XL 25 MG TABLET PO SCH (09:11)
[2020-01-21] MEDS: TAMSULOSIN 0.4 MG CAPSULE PO SCH ×2 (09:11→21:28)
[2020-01-21] MEDS: TIMOLOL 0.5% OPH SOLN 5 ML BOTTLE BOTH EYES SCH (13:38)
[2020-01-21] MEDS: CLINDAMYCIN 15 MG/ML 100 ML/BOTTLE PO SCH (21:27)
[2020-01-21] MEDS: ATORVASTATIN 40 MG TABLET PO SCH (21:29)
[2020-01-22] MEDS: ALBUTEROL/IPRATROPIUM 3 ML NEB RESP TX SCH ×4 (00:54→19:56)
[2020-01-22] MEDS: CLINDAMYCIN 15 MG/ML 100 ML/BOTTLE PO SCH ×3 (06:00→21:50)
[2020-01-22] MEDS: INSULIN REGULAR 100 UNIT/ML SUBCUT SCH ×4 (08:37→23:21)
[2020-01-22] MEDS: METOPROLOL SUCCINATE XL 25 MG TABLET PO SCH (09:57)
[2020-01-22] MEDS: POTASSIUM CHLORIDE 10 MEQ TABLET PO SCH ×2 (09:57→21:52)
[2020-01-22] MEDS: TIMOLOL 0.5% OPH SOLN 5 ML BOTTLE BOTH EYES SCH (09:58)
[2020-01-22] MEDS: TAMSULOSIN 0.4 MG CAPSULE PO SCH ×2 (09:58→21:51)
[2020-01-22] MEDS: PANTOPRAZOLE 40 MG VIAL IV SCH ×2 (09:58→21:52)
[2020-01-22] MEDS ORDERED: HALOPERIDOL 5 MG/ML AMP IM PRN (11:27)
[2020-01-22] MEDS: DONEPEZIL 5 MG TABLET PO SCH (21:51)
[2020-01-22] MEDS: ATORVASTATIN 40 MG TABLET PO SCH (21:52)
[2020-01-22 21:59] LABS: Apearance,Urine CLEAR (Clear); Bilirubin,Urine Negative (Negative); Blood, Urine Moderate mg/dL (Negative); Glucose,Urine (UA) Negative (Negative); Hyaline Casts,Urine 8 /LPF (0-3); Ketones,Urine Negative (Negative); Mucus,Urine Occasional /LPF (Occasional); Nitrite,Urine Negative (Negative); Protein,Urine 30 MG/DL; RBC,Urine 89 /HPF (0-4); Urine Color Yellow (Yellow); Urine Specific Gravity 1.013 (1.001-1.035); Urine Urobilinogen < 2.0 EU/DL (0.2-1.0); WBC,Urine 14 /HPF (0-6)
[2020-01-23] MEDS: ALBUTEROL/IPRATROPIUM 3 ML NEB RESP TX SCH ×4 (02:00→19:54)
[2020-01-23] MEDS: CLINDAMYCIN 15 MG/ML 100 ML/BOTTLE PO SCH ×3 (05:43→22:00)
[2020-01-23 07:14] LABS: Calcium 8.6 MG/DL (8.5-10.1); Osmolality,Calculated 278.4 MOS/KG (273-304)
[2020-01-23 09:46] LABS: Basophils % 0.2 % (0.0-0.8); Eosinophils # 0.4 10*3/uL (0.0-0.87); Eosinophils % 3.4 % (0.00-10.9); Hematocrit 31.3 VOL% (42.0-52.0); Hemoglobin 10.3 GM/DL (14.0-18.0); Immature Granulocytes % 1.3 %; Immature Granulocytes Absolute 0.15 #; Lymphocytes # 1.8 10*3/uL (1.4-4.0); Lymphocytes % 15.7 % (21.2-54.2); Mean Corpuscular HGB Conc 32.9 GM/DL (32-36); Mean Corpuscular Volume 79.2 FL (87-102); Mean Platelet Volume 10.3 FL (9.6-12.0); Monocytes % 6.6 % (1.7-12.7); Neutrophils % 72.8 % (38.7-73.9); Platelet Count 227 T/CUMM (130-400); Red Blood Count 3.95 MC/CUMM (3.8-5.5); White Blood Count 11.1 T/CUMM (4-12)
[2020-01-23] MEDS: PANTOPRAZOLE 40 MG VIAL IV SCH ×2 (11:51→22:26)
[2020-01-23] MEDS: TAMSULOSIN 0.4 MG CAPSULE PO SCH ×2 (11:52→22:25)
[2020-01-23] MEDS: POTASSIUM CHLORIDE 10 MEQ TABLET PO SCH ×2 (11:52→22:25)
[2020-01-23] MEDS: METOPROLOL SUCCINATE XL 25 MG TABLET PO SCH (11:52)
[2020-01-23] MEDS: TIMOLOL 0.5% OPH SOLN 5 ML BOTTLE BOTH EYES SCH (11:53)
[2020-01-23] MEDS: INSULIN REGULAR 100 UNIT/ML SUBCUT SCH ×4 (13:21→23:23)
[2020-01-23] MEDS: DONEPEZIL 5 MG TABLET PO SCH (22:25)
[2020-01-23] MEDS: ATORVASTATIN 40 MG TABLET PO SCH (22:25)
[2020-01-24] MEDS: ALBUTEROL/IPRATROPIUM 3 ML NEB RESP TX SCH ×4 (01:03→20:57)
[2020-01-24] MEDS: CLINDAMYCIN 15 MG/ML 100 ML/BOTTLE PO SCH ×3 (06:49→21:29)
[2020-01-24] MEDS: INSULIN REGULAR 100 UNIT/ML SUBCUT SCH ×4 (10:00→20:20)
[2020-01-24] MEDS: POTASSIUM CHLORIDE 10 MEQ TABLET PO SCH ×2 (10:04→21:30)
[2020-01-24] MEDS: METOPROLOL SUCCINATE XL 25 MG TABLET PO SCH (10:04)
[2020-01-24] MEDS: PANTOPRAZOLE 40 MG VIAL IV SCH ×2 (10:05→21:30)
[2020-01-24] MEDS: TAMSULOSIN 0.4 MG CAPSULE PO SCH ×2 (10:05→21:30)
[2020-01-24] MEDS: TIMOLOL 0.5% OPH SOLN 5 ML BOTTLE BOTH EYES SCH (11:54)
[2020-01-24] MEDS: ATORVASTATIN 40 MG TABLET PO SCH (21:30)
[2020-01-24] MEDS: DONEPEZIL 5 MG TABLET PO SCH (21:31)
[2020-01-25] MEDS: ALBUTEROL/IPRATROPIUM 3 ML NEB RESP TX SCH ×4 (02:43→19:15)
[2020-01-25] MEDS: CLINDAMYCIN 15 MG/ML 100 ML/BOTTLE PO SCH ×3 (06:30→21:06)
[2020-01-25] MEDS: PANTOPRAZOLE 40 MG VIAL IV SCH ×2 (09:03→20:45)
[2020-01-25] MEDS: METOPROLOL SUCCINATE XL 25 MG TABLET PO SCH (09:04)
[2020-01-25] MEDS: TIMOLOL 0.5% OPH SOLN 5 ML BOTTLE BOTH EYES SCH (09:04)
[2020-01-25] MEDS: TAMSULOSIN 0.4 MG CAPSULE PO SCH ×2 (09:04→20:45)
[2020-01-25] MEDS: POTASSIUM CHLORIDE 10 MEQ TABLET PO SCH ×2 (09:04→20:45)
[2020-01-25] MEDS: INSULIN REGULAR 100 UNIT/ML SUBCUT SCH ×4 (09:05→20:55)
[2020-01-25] MEDS: ATORVASTATIN 40 MG TABLET PO SCH (20:45)
[2020-01-25] MEDS: DONEPEZIL 5 MG TABLET PO SCH (20:46)
[2020-01-26] MEDS: ALBUTEROL/IPRATROPIUM 3 ML NEB RESP TX SCH ×4 (01:00→20:20)
[2020-01-26] MEDS: CLINDAMYCIN 15 MG/ML 100 ML/BOTTLE PO SCH (05:08)
[2020-01-26] MEDS: INSULIN REGULAR 100 UNIT/ML SUBCUT SCH ×4 (08:49→21:14)
[2020-01-26] MEDS: TAMSULOSIN 0.4 MG CAPSULE PO SCH ×2 (08:50→21:59)
[2020-01-26] MEDS: POTASSIUM CHLORIDE 10 MEQ TABLET PO SCH ×2 (08:50→21:59)
[2020-01-26] MEDS: METOPROLOL SUCCINATE XL 25 MG TABLET PO SCH (08:50)
[2020-01-26] MEDS: PANTOPRAZOLE 40 MG VIAL IV SCH ×2 (08:50→22:00)
[2020-01-26] MEDS: TIMOLOL 0.5% OPH SOLN 5 ML BOTTLE BOTH EYES SCH (12:16)
[2020-01-26] MEDS: ATORVASTATIN 40 MG TABLET PO SCH (21:59)
[2020-01-26] MEDS: DONEPEZIL 5 MG TABLET PO SCH (21:59)
[2020-01-27] MEDS: ALBUTEROL/IPRATROPIUM 3 ML NEB RESP TX SCH ×4 (00:46→20:19)
[2020-01-27] MEDS: METOPROLOL SUCCINATE XL 25 MG TABLET PO SCH (09:42)
[2020-01-27] MEDS: POTASSIUM CHLORIDE 10 MEQ TABLET PO SCH ×2 (09:42→20:31)
[2020-01-27] MEDS: TAMSULOSIN 0.4 MG CAPSULE PO SCH ×2 (09:42→20:32)
[2020-01-27] MEDS: INSULIN REGULAR 100 UNIT/ML SUBCUT SCH ×4 (09:43→21:11)
[2020-01-27] MEDS: TIMOLOL 0.5% OPH SOLN 5 ML BOTTLE BOTH EYES SCH (09:43)
[2020-01-27] MEDS: PANTOPRAZOLE 40 MG VIAL IV SCH ×2 (09:43→20:31)
[2020-01-27] MEDS: DONEPEZIL 5 MG TABLET PO SCH (20:31)
[2020-01-27] MEDS: ATORVASTATIN 40 MG TABLET PO SCH (20:31)
[2020-01-28] MEDS: ALBUTEROL/IPRATROPIUM 3 ML NEB RESP TX SCH ×4 (01:31→19:35)
[2020-01-28] MEDS: INSULIN REGULAR 100 UNIT/ML SUBCUT SCH ×4 (09:46→20:50)
[2020-01-28] MEDS: TAMSULOSIN 0.4 MG CAPSULE PO SCH ×2 (09:48→20:26)
[2020-01-28] MEDS: POTASSIUM CHLORIDE 10 MEQ TABLET PO SCH ×2 (09:48→20:26)
[2020-01-28] MEDS: METOPROLOL SUCCINATE XL 25 MG TABLET PO SCH (09:49)
[2020-01-28] MEDS: PANTOPRAZOLE 40 MG VIAL IV SCH ×2 (09:49→20:26)
[2020-01-28] MEDS: TIMOLOL 0.5% OPH SOLN 5 ML BOTTLE BOTH EYES SCH (11:13)
[2020-01-28] MEDS: ATORVASTATIN 40 MG TABLET PO SCH (20:26)
[2020-01-28] MEDS: DONEPEZIL 5 MG TABLET PO SCH (20:26)
[2020-01-29] MEDS: ALBUTEROL/IPRATROPIUM 3 ML NEB RESP TX SCH ×4 (00:19→19:55)
[2020-01-29] MEDS: POTASSIUM CHLORIDE 10 MEQ TABLET PO SCH ×2 (09:09→21:11)
[2020-01-29] MEDS: METOPROLOL SUCCINATE XL 25 MG TABLET PO SCH (09:09)
[2020-01-29] MEDS: TAMSULOSIN 0.4 MG CAPSULE PO SCH ×2 (09:09→21:11)
[2020-01-29] MEDS: PANTOPRAZOLE 40 MG VIAL IV SCH ×2 (09:09→21:10)
[2020-01-29] MEDS: INSULIN REGULAR 100 UNIT/ML SUBCUT SCH ×4 (09:12→21:11)
[2020-01-29] MEDS: TIMOLOL 0.5% OPH SOLN 5 ML BOTTLE BOTH EYES SCH (09:12)
[2020-01-29 12:46] LABS: Calcium 9.1 MG/DL (8.5-10.1)
[2020-01-29 12:56] LABS: Basophils % 0.5 % (0.0-0.8); Eosinophils # 0.4 10*3/uL (0.0-0.87); Eosinophils % 5.3 % (0.00-10.9); Hematocrit 29.9 VOL% (42.0-52.0); Hemoglobin 9.9 GM/DL (14.0-18.0); Immature Granulocytes % 0.6 %; Immature Granulocytes Absolute 0.05 #; Lymphocytes # 1.4 10*3/uL (1.4-4.0); Lymphocytes % 18.4 % (21.2-54.2); Mean Corpuscular HGB Conc 33.1 GM/DL (32-36); Mean Corpuscular Volume 79.7 FL (87-102); Monocytes % 8.3 % (1.7-12.7); Neutrophils % 66.9 % (38.7-73.9); Platelet Count 276 T/CUMM (130-400); Red Blood Count 3.75 MC/CUMM (3.8-5.5); Red Cell Distribution Width 15.1 % (9.3-17.3); White Blood Count 7.7 T/CUMM (4-12)
[2020-01-29 13:01] LABS: Apearance,Urine Slightly Hazy (Clear); Bacteria,Urine Occasional /HPF (Few); Bilirubin,Urine Negative (Negative); Blood, Urine Large mg/dL (Negative); Glucose,Urine (UA) Negative (Negative); Hyaline Casts,Urine 7 /LPF (0-3); Ketones,Urine Negative (Negative); Mucus,Urine Occasional /LPF (Occasional); Nitrite,Urine Negative (Negative); Protein,Urine 100 MG/DL; RBC,Urine 137 /HPF (0-4); Squamous Epithelial Cell,Urine Occasional /HPF (0-10); Urine Color Yellow (Yellow); Urine Specific Gravity 1.026 (1.001-1.035); Urine Urobilinogen < 2.0 EU/DL (0.2-1.0)
[2020-01-29] MEDS ORDERED: SODIUM CHLORIDE 0.9% 500 ML IV ONE (13:26)
[2020-01-29] MEDS: ATORVASTATIN 40 MG TABLET PO SCH (21:10)
[2020-01-29] MEDS: DONEPEZIL 5 MG TABLET PO SCH (21:11)
[2020-01-30] MEDS: ALBUTEROL/IPRATROPIUM 3 ML NEB RESP TX SCH ×4 (00:18→18:41)
[2020-01-30] MEDS: INSULIN REGULAR 100 UNIT/ML SUBCUT SCH ×4 (07:44→21:35)
[2020-01-30] MEDS: TAMSULOSIN 0.4 MG CAPSULE PO SCH ×2 (08:44→21:22)
[2020-01-30] MEDS: METOPROLOL TARTRATE 25 MG TABLET PO SCH ×2 (08:44→21:22)
[2020-01-30] MEDS: PANTOPRAZOLE 40 MG VIAL IV SCH (08:44)
[2020-01-30] MEDS: POTASSIUM CHLORIDE 20 MEQ/15 ML UDCUP PO SCH ×2 (08:44→21:30)
[2020-01-30] MEDS: TIMOLOL 0.5% OPH SOLN 5 ML BOTTLE BOTH EYES SCH (08:59)
[2020-01-30] MEDS: ATORVASTATIN 40 MG TABLET PO SCH (21:22)
[2020-01-30] MEDS: DONEPEZIL 5 MG TABLET PO SCH (21:22)
[2020-01-30] MEDS: OMEPRAZOLE ODT 20 MG TABLET PO SCH (21:23)
[2020-01-31] MEDS: ALBUTEROL/IPRATROPIUM 3 ML NEB RESP TX SCH ×4 (00:49→18:55)
[2020-01-31 06:22] LABS: Basophils # 0.1 10*3/uL (0.0-0.2); Basophils % 0.9 % (0.0-0.8); Eosinophils # 0.4 10*3/uL (0.0-0.87); Eosinophils % 6.1 % (0.00-10.9); Hematocrit 29.8 VOL% (42.0-52.0); Hemoglobin 9.8 GM/DL (14.0-18.0); Immature Granulocytes % 0.3 %; Immature Granulocytes Absolute 0.02 #; Lymphocytes # 1.4 10*3/uL (1.4-4.0); Lymphocytes % 19.5 % (21.2-54.2); Mean Corpuscular HGB Conc 32.9 GM/DL (32-36); Mean Corpuscular Volume 78.2 FL (87-102); Mean Platelet Volume 10.6 FL (9.6-12.0); Monocytes % 8.8 % (1.7-12.7); Neutrophils % 64.4 % (38.7-73.9); Platelet Count 283 T/CUMM (130-400); Red Blood Count 3.81 MC/CUMM (3.8-5.5); Red Cell Distribution Width 14.7 % (9.3-17.3); White Blood Count 6.9 T/CUMM (4-12)
[2020-01-31 07:06] LABS: Osmolality,Calculated 285.3 MOS/KG (273-304)
[2020-01-31] MEDS: INSULIN REGULAR 100 UNIT/ML SUBCUT SCH ×4 (08:34→20:53)
[2020-01-31] MEDS: OMEPRAZOLE ODT 20 MG TABLET PO SCH ×2 (08:35→20:46)
[2020-01-31] MEDS: TAMSULOSIN 0.4 MG CAPSULE PO SCH ×2 (08:35→20:46)
[2020-01-31] MEDS: METOPROLOL TARTRATE 25 MG TABLET PO SCH ×2 (08:35→20:46)
[2020-01-31] MEDS: POTASSIUM CHLORIDE 20 MEQ/15 ML UDCUP PO SCH ×2 (08:36→20:47)
[2020-01-31] MEDS: TIMOLOL 0.5% OPH SOLN 5 ML BOTTLE BOTH EYES SCH (08:36)
[2020-01-31] MEDS: cefTRIAXone 1,000 MG in SYRINGE 1 EACH IV SCH (13:52)
[2020-01-31] MEDS: DONEPEZIL 5 MG TABLET PO SCH (20:47)
[2020-01-31] MEDS: ATORVASTATIN 40 MG TABLET PO SCH (20:53)
[2020-02-01] MEDS: ALBUTEROL/IPRATROPIUM 3 ML NEB RESP TX SCH ×4 (00:44→19:21)
[2020-02-01] MEDS: INSULIN REGULAR 100 UNIT/ML SUBCUT SCH ×4 (08:24→22:05)
[2020-02-01] MEDS: METOPROLOL TARTRATE 25 MG TABLET PO SCH ×2 (08:41→22:02)
[2020-02-01] MEDS: OMEPRAZOLE ODT 20 MG TABLET PO SCH ×2 (08:41→22:02)
[2020-02-01] MEDS: POTASSIUM CHLORIDE 20 MEQ/15 ML UDCUP PO SCH ×2 (08:41→22:05)
[2020-02-01] MEDS: TAMSULOSIN 0.4 MG CAPSULE PO SCH ×2 (08:41→22:02)
[2020-02-01] MEDS: TIMOLOL 0.5% OPH SOLN 5 ML BOTTLE BOTH EYES SCH (08:42)
[2020-02-01] MEDS: cefTRIAXone 1,000 MG in SYRINGE 1 EACH IV SCH (12:34)
[2020-02-01] MEDS: ATORVASTATIN 40 MG TABLET PO SCH (22:02)
[2020-02-01] MEDS: DONEPEZIL 5 MG TABLET PO SCH (22:04)
[2020-02-02] MEDS: ALBUTEROL/IPRATROPIUM 3 ML NEB RESP TX SCH ×2 (01:37→07:22)
[2020-02-02] MEDS: POTASSIUM CHLORIDE 20 MEQ/15 ML UDCUP PO SCH (09:26)
[2020-02-02] MEDS: OMEPRAZOLE ODT 20 MG TABLET PO SCH (09:26)
[2020-02-02] MEDS: METOPROLOL TARTRATE 25 MG TABLET PO SCH (09:26)
[2020-02-02] MEDS: TAMSULOSIN 0.4 MG CAPSULE PO SCH (09:27)
[2020-02-02] MEDS: INSULIN REGULAR 100 UNIT/ML SUBCUT SCH (09:28)
[2020-02-02] MEDS: TIMOLOL 0.5% OPH SOLN 5 ML BOTTLE BOTH EYES SCH (09:30)
[2020-02-02 12:15] VITALS: BP 125/70
== END 2020-02-02 13:54 | DRG 380 ==
LOC: EDBD → EDUNIT# → N.ED 17:10 → N.EDINP 21:17 → SUATTDRO 21:17 → SUPCPDRO 21:17 → N.5E 22:19 → N.CC 01-16 07:52 → N.5E 01-17 12:23
PROVIDERS: ADMIT Internal Medicine; ATTEND Family Medicine